=== PATIENT | female | born 1995 | race Caucasian/White ===

== ENCOUNTER 2020-09-14 11:39 | Inpatient (IN) | payer OTHER ==
[~2020-09-14] VITALS: Ht 167.6 cm; Wt 67.4 kg
--- NOTE | 2020-09-14 19:06 | EKG ---
[facility] [address] [place], [place] [address] Signed Sinus tachycardia Nonspecific ST abnormality Abnormal ECG No previous ECGs available Confirmed by MARIANNA MEHTA MD ([id number]) on 09/14/2020 7:06:13 PM Electronically Signed By: MARIANNA MEHTA MD 09/14/20 1906 PATIENT NAME: COLT BECKWITH MONICA Electrocardiogram DATE OF : [birth year] PHYSICIAN: MARIANNA MEHTA MD REPORT #: [id number] REPORT IS CONFIDENTIAL AND NOT TO BE RELEASED WITHOUT AUTHORIZATION
[2020-09-15] MEDS ORDERED: OMEPRAZOLE40 MG PO (07:11)
[2020-09-15] MEDS ORDERED: RIZATRIPTAN10 M1 PO (07:11)
[2020-09-15] MEDS ORDERED: NEXPLANON68 MG SUB-Q (07:16)
[2020-09-17] MEDS ORDERED: MORPHINE SULFAT15 MG PO (15:47)
[2020-09-17] MEDS ORDERED: ONDANSETRON HCL4 MG PO (15:49)
[2020-09-17] MEDS ORDERED: DEXAMETHASONE1 MG PO (15:49)
== END 2020-09-17 16:35 | disposition home or self-care (01) | DRG 916 ==
LOC: ED 11:39 → CCU 11:40 → MS 09-16 14:47
PROVIDERS: ADMIT Internal Medicine; ATTEND Internal Medicine
DX: T80.52XA Anaphylactic reaction due to vaccination, initial encounter (principal); T50.B95A Adverse effect of other viral vaccines, initial encounter; Z20.822 Contact with and (suspected) exposure to COVID-19; M79.10 Myalgia, unspecified site; M25.50 Pain in unspecified joint; L27.0 Generalized skin eruption due to drugs and medicaments taken internally; G43.909 Migraine, unspecified, not intractable, without status migrainosus; Z79.899 Other long term (current) drug therapy
CPT/HCPCS: 36415; 70360; 71045; 80048; 80053; 82310; 82330; 82550; 85025; 85651; 93005; 93010; 96374; 96375; 96376; 99284-25; A9270; C9113; C9803; G0378; J0171; J0780; J1100; J1200; J1885; J2060; J2270; J2405; J2550; J3010; J7030; J7121; J8540; Q0177; U0003

== ENCOUNTER 2020-11-23 09:02 | Inpatient (IN) | payer OTHER ==
[~2020-11-23] VITALS: Ht 167.6 cm; Wt 66.0 kg
[~2020-11-23 09:02] MED LIST: AMITRIPTYLINE H10 MG PO; DEXAMETHASONE1 MG PO; MAXALT10 MG PO; MORPHINE SULFAT15 MG PO; NEXPLANON68 MG SUB-Q; OMEPRAZOLE20 MG PO; OMEPRAZOLE40 MG PO; ONDANSETRON HCL4 MG PO; VALACYCLOVIR1000 MG PO
[2020-11-23] MEDS ORDERED: RIZATRIPTAN10 M1 PO (13:20)
--- NOTE | 2020-11-23 15:40 | NUR ---
Spoke with pts so as she is intubated. He states they cont. to live in [place]. 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 No needs and no financial issues. Plan on dc to home when cleared medically for dc.
--- NOTE | 2020-11-23 18:01 | NUR ---
LATE ENTRY NOTE FROM [id number] 1300: PATIENT ARRIVES TO CCU FROM ENDO ROOM S/P ANAPHLYAXIS AFTER RECEIVING LIDOCAINE FOR EGD. PATIENT WAS ADMITTED SEP 14, 2020 FOR ANAPHYLAXIS AFTER RECEIVING COVID-19 VACCINE. PATIENT HAS A 7 MM ETT, SECURED AT 23 AT THE LIP AFTER ADVANCING AND TAKING A REPEAT CHEST XRAY. PT WAS RECEIVING IV PROPOFOL UPON ARRIVAL. PT VERY STRONG AND ABLE TO SIT UPRIGHT IN BED WHEN COUGHING. 1400: PRN DOSES OF FENTANYL GIVEN FOR PAIN, COUGHING, AND NOT TOLERATING VENTILATOR. PT'S VENT SETTINGS ARE VT 500, VC/AC 16, PEEP 5, FI02 40%. ATTEMPTS FOR NEW IV BEING SOUGHT AFTER SINCE PATIENT ONLY HAD THE ONE IV SITE IN RIGHT HAND UP ON ADMISSION. 1546: PATIENT GIVEN IM 0.5 MG EPINEPHRINE INTO RIGHT VENTROGLUTEAL PER DR. YOON ORDER. PATIENT WAS RESTING FAIRLY CALMLY ON VENTILATOR PRIOR TO THIS, WIHT A HR IN THE 80-90s MOSTLY. AFTER EPI WAS GIVEN, HR UP TO 140-160s, PATIENT WIDE AWAKE ON PROPOFOL, PT SIGNALING AT HER THROAT AND SHOWING A SQUEEZING MESSAGE WITH HER HANDS. WHEN ASKED IF SHE WAS HAVING TROUBLE BREATHING, PATIENT VERY OBVIOUSLY NODS HEAD YES WITH EYES WIDE OPEN. PT BECOMING TEARFUL. RASH COMES AND GOES ON PATIENT'S NECK AND FACE, AND DOWN ONTO UPPER CHEST AREA. LUNGS ARE FAIRLY CLEAR OVERALL. LOTS OF ORAL SECRETIONS BEING SUCTIONED FOR PATIENT. 1630: AFTER MANY ATTEMPTS TO CALM PATIENT DOWN, REITERATE THAT SHE IS IN FACT BREATHING OKAY, HER OXYGEN IS ADEQUATE, BUT HER BODY IS SIMPLY PROCESSING THE EPINEPHRINE SHE WAS GIVEN, PATIENT WAS ABLE TO CALM DOWN. PROPOFOL AND FENTANYL TITRATED UP TO HELP PATIENT. PATIENT GIVEN ADDITIONAL FENTANYL DOSE TO HELP CALM HER WHICH DID HELP. ANOTHER IV WAS FINALLY ESTABLISHED AFTER 3 ATTEMPTS IN LEFT AC. PATIENT SITTING STRAIGHT UP IN BED, BELCHING, DROOLING, AND VERY TEARFUL. PT'S S/O RANDY REMAINS IN ROOM AND VERY HELPFUL TO PATIENT. 1700: PATIENT WRITING CLEAR, LEGIBLE NOTES TO NURSING STAFF AND TO HER S/O. PATIENT ASKING THE EVENTS OF THE DAY AND THIS WAS DISCUSSED. PT STILL HAVING 8-9/10 PAIN IN HER THROAT AND FEELS THAT "SHE CAN BREATH OUT OKAY, BUT NOT IN OKAY." PATIENT GIVEN PRN PHENERGAN FOR NAUSEA. 1800: PATIENT IS NOW RESTING, MUCH CALMER ON THE VENT. VENT SETTINGS ARE UNCHANGED. PT'S SIGNIFICANT OTHER IS AT BEDSIDE. PROPOFOL CURRENTLY INFUSING AT 60 MCG/KG/MIN, FENTANYL AT 50 MCG/KG/HR. WILL START VERSED GTT NEEDED.
--- NOTE | 2020-11-23 19:30 | NUR ---
RECEIVED REPORT FROM TRESA. pt IN BED ON VENT. ALERT AND AWAKE. WRITING QUESTIONS. RT IN ROOM DOING ASSESSMENT. 7mm ETT, SECURED AT 23 AT THE LIP. VENT SETTING VT 500, VC/AC 16, PEEP 5, Fi02 40%. IV PROPOFOL AT 50 mcg/kg/min. FENTANYL AT 50 mcg/HR. LR AT 100 ML/HR. IV PATENT. BAUTISTA DRAINING CLOUDY, YELLOW. pt's SIGNIFICANT OTHER AT THE BEDSIDE.
--- NOTE | 2020-11-23 20:30 | NUR ---
IN TO DO ASSESSMENT. pt REPORTING CHEST HEAVINESS AND IRRITATION IN THE BACK OF HER THROAT. OFFERED HER PAIN MANAGEMENT OPTIONS. pt REPORTED BEING ITCHY WITH DILAUDID. FENTANYL PUSH GIVEN (SEE MAR). NEW BOTTLE OF PROPOFOL HUNG. ADRIANNA VALDEZ VERIFIED PUMP SETTINGS. ASSESSMENT DONE. LUNG SOUNDS CLEAR. NO CHANGES IN ETT PLACEMENT. pt DOES OWN ORAL CARE. WRITING NOTES AND USING SIGN LANGUAGE TO COMMUNICATE. REPOSITIONING SELF. SCDS IN PLACE. SIGNIFICANT OTHER REMAINS AT BEDSIDE.
--- NOTE | 2020-11-23 20:45 | NUR ---
SPOKE WITH DR YOON ABOUT pt CONDITION. NEW ORDERS ENTERED
--- NOTE | 2020-11-23 20:51 | NUR ---
pt RESTING WITH EYES CLOSED, WOKE TO VOICE. DENIES NAUSEA AT THIS TIME. SIGNIFICANT OTHER AT BEDSIDE. RASS SCORE -2.
--- NOTE | 2020-11-23 22:04 | NUR ---
IN TO GIVE SCHEDULED MEDICATIONS. pt RESTING ON VENT, EYES CLOSED. NO CHANGES IN ETT. IV'S PATENT. CPOT 0. DWAINE AT BEDSIDE.
--- NOTE | 2020-11-23 23:11 | NUR ---
ROUNDED ON pt. NEW BAG OF IV FLUIDS HUNG. pt RESTING IN BED WITH EYES CLOSED, NO CHANGE ON ETT. RESTRAINTS ASSESSED. DWAINE AT BEDSIDE.
--- NOTE | 2020-11-24 00:30 | NUR ---
IN TO DO ASSESSMENT. RESTRAINTS RELEASE, ROM. 2PA TO REPOSITION. pt TOLERATED WELL. ASKING QUESITONS THROUGH SIGN LANGUAGE AND WRITING. NO CHANGES IN PHYSICAL ASSESSMENT. ETT REMAINS IN PLACE. ORAL CARE DONE. pt REPORTING THE SAME HEAVINESS IN HER CHEST PROVIDED PRN PAIN MEDICATION. RASS 0. CPOT 3 PRIOR TO PAIN MEDICATION. WILL REASSESS PAIN IN 10 MINUTES. pt AGREEABLE TO PLAN. DWAINE AT BEDSIDE.
--- NOTE | 2020-11-24 00:57 | NUR ---
REASSESSED pt. PAIN OKAY AT THIS TIME. pt REPORTED THAT THERE WAS SOMETHING TO SUCTION OUT OF HER THROAT. RT IN TO ASSIST. SUCTIONING DONE. pt TOLERATED WELL. NO FURTHER REQUESTS AT THIS TIME. DWAINE REMAINS AT BEDSIDE.
--- NOTE | 2020-11-24 01:49 | NUR ---
pt REPORTING AN INCREASE IN CHEST HEAVINESS. ATIVAN GIVEN PER REQUEST. NO CHANGE 100mcg OF FENTANYL GIVEN (SEE MAR). pt NOW RESTING WITH EYES CLOSED, RELAXED IN APPEARANCE. DWAINE REMAINS AT BEDSIDE.
--- NOTE | 2020-11-24 02:05 | NUR ---
pt CONTINUES TO REST CALMLY WITH EYES CLOSED. FENTANYL GTT TITRATED TO 75mcg/HR TO CONTINUE PAIN MANAGEMENT. CPOT 0 AT THIS TIME.
--- NOTE | 2020-11-24 02:53 | NUR ---
ROUNDED ON pt. RESTING IN BED WITH EYES CLOSED, RELAXED. GTT'S REMAIN UNCHANGED. ETT PLACEMENT REMAINS UNCHANGED.
--- NOTE | 2020-11-24 04:16 | NUR ---
ASSESSMENT DONE. RT IN ROOM. ETT MOVED TO CENTER. NO CHANGES IN ASSESSMENT. RESTRAINTS RELEASED, ROM, REAPPLIED. SLIGHT EDEMA IN ARMS NOTED. ELEVATED ON PILLOWS.
--- NOTE | 2020-11-24 05:27 | NUR ---
LAB INTO DRAW. pt TOLERATED WELL ABLE TO MAKE EYE CONTACT FOR A FEW SECONDS. SIGNED "WHAT TIME IS IT?" ABLE TO RELAX AFTER LAB DRAW WAS COMPLETE.
--- NOTE | 2020-11-24 05:49 | NUR ---
MEDICATIONS GIVEN (SEE MAR). pt RESTING CALMLY ON VENT WITH EYES CLOSED.
--- NOTE | 2020-11-24 06:32 | NUR ---
ASSISTED RT WITH ORAL CARE. pt TOLERATED WELL. RASS -1. RANGE OF MOTION DONE. pt REPOSITIONED SELF WITH MINIMAL ASSISTANCE. RESTRAINTS REAPPLIED. SIGNIFICANT OTHER, DWAINE, AT BEDSIDE. NO CHANGES IN ETT OR GTT
--- NOTE | 2020-11-24 07:02 | NUR ---
ROUNDED ON pt. RESTING CALMLY ON VENT. RASS -2
--- NOTE | 2020-11-24 07:34 | NUR ---
RT IN ROOM. PATIENT'S PROPOFOL TURNED DOWN TO 25 MCG/KG/MIN AND FENTANYL TURNED DOWN TO 25 MCG/HR. PATIENT WRITING NOTES TO THIS RN AND ASKING IF WE CAN HELP HER BRUSH HER HAIR. PATIENT AWAKE ENOUGH TO COMMUNICATE WITH SIGN LANGUAGE. DISCUSSED PLAN OF CARE WITH PATIENT. PATIENT STILL ABLE TO COMMUNICATE THAT HER THROAT FEELS TIGHT. PT'S S/O REMAINS IN ROOM. CONTINUE TO MONITOR.
--- NOTE | 2020-11-24 07:56 | NUR ---
KAT FROM RT TO DO A SPONTANEOUS BREATHING TRIAL AT THIS TIME. PT STATES THAT IT IS HARD TO BREATHE. PT ABLE TO BREATHE OVER VENT. O2 100%. PROPOFOL TURNED DOWN TO STANDBY. PTS RESP DROPPED TO 8/MIN. PT STILL DROWSY. KAT FROM RT TO PUT PT BACK ON COVENTIAL SETTINGS. FIO2- 30, VT-500, TI- 0.94, RR-16, PEEP- 5.0.
--- NOTE | 2020-11-24 08:55 | NUR ---
v/s and I&Os done. pt. hair done, face washed. no other needs at this time. call light with in reach
--- NOTE | 2020-11-24 09:33 | NUR ---
RT IN ROOM, GLORIA SANTOS IN ROOM, IN ROOM, KENYA RN IN ROOM, NIDA RN AND AZAEL IN ROOM. PLAN FOR EXTUBATION
--- NOTE | 2020-11-24 09:35 | NUR ---
PT EXTUBATED 0935 PT SHAKES HEAD TO DOESN'T FEEL LIKE AIR IS MOVING WELL. PER STATES THAT PTS LUNGS SOUND TIGHT THROUGHOUT. GLORIA SANTOS TO GIVE BREATHS THROUGH BVM- 12L BLEED IN. PT TAKING BREATHS IN. RR- 16, O2 SAT- 100% GLORIA SANTOS TO SUCTION OROPHARYNX KAT RT TO GIVE RECEMIC EPI. SUCTION APPLIED AGAIN BY GLORIA SANTOS 0942- HR- 161, RR- 25, BVM STILL IN USE- 12L... PT ABLE TO TAKE DEEP BREATHS. SPO2 100% PROPOFOL IN STANDBY- FENTANYL STILL RUNNING AT 25MCG/HR BREATHS STILL BEING DELILVERD BY GLORIA SANTOS 0947- BIPAP TO BE PLACED BY KAT RT- RECEMIC EPI TO BE GIVEN TRHOUGH BIPAP- PT ABLE TO COMMUNICATE THROUGH BODY LANGAUGE AND POINTING THAT HER CHEST AND THRAOT STILL FEELS TIGHT BIPAP ON 50% FIO2- RR- 34, SPO2 100%, HR- 157. PT DECLINES THE NEED FOR MORE FENTANYL- STILL SET AT 25MCG/HR, LR 100ML/HR RED SPLOTCHY RASH NOTED ON PTS CHEST. RECEMIC EPI GOING IN NOW- AIRWAY STARTING TO SOUND BETTER WITH AIR MOVEMENT- PT STATES THAT HER CHEST STILL FEELS TIGHT 0957- RR- 29, SPO2- 100%, FIO2- 50%, HR-123. RESTRAINTS REMOVED FOR COMFORT 0958 1000- GLORIA RN STATED TO HAVE FENTANYL DRIP STOPPED- DRIP ON STANDBY 1000- BP- 140/94 (107), HR- 120, RR- 29, SPO2-100%, FIO2 50% 1002- PT INDICATING THAT CHEST IS STILL TIGHT 1006- RR-20, HR-111, SPO2-100%, FIO2-50% 1008- PT REQUESTING TO TAKE OFF BIPAP VOCALLY 1008- KAT RT TO TAKE OFF BIPAP- PT MOVING AIR WELL THROUGH AIRWAY PER , RR-33, HR-147, SPO2-100% ROOM AIR... MASK WITH 10L COOL MIST BLEED IN PLACED ON PT (1010 TIME). 1010- RR-49 1011- BIPAP PLACED BACK ON DUE TO TACHYCPNEA- PT COUGHED- RR-47. 1014- RR-36, HR-120, SPO2- 100, FIO2- 50%. 1017- PT COUGHING- AUDIBLY MOVING AIR WELL.
--- NOTE | 2020-11-24 10:22 | NUR ---
PT RECEIVED NEB TREATMENT THROUGH BIPAP- SHORTLY AFTER IT STARTED PT LOOKED AT THIS RN WITH PANIC IN HER EYES... PT THEN COUGHED... PT INDICATED FOR SUCTION... KAT FROM RT AT BEDSIDE WAS ABLE TO SUCTION PT. PT ABLE TO RELAX AND BREATHE WELL AGAIN. COUGHT WAS PRODCTIVE. PT DECLINGING THE NEED FOR ATIVAN AT THIS TIME, PT WROTE ON PAPER STATING "WE DON'T KNOW WHAT I AM ALLERGIC TO" PT STATES THAT SHE DOESN'T FEEL ANXIOUS AT THIS TIME AND WOULD RATHER NOT TAKE ANYTHING MORE
--- NOTE | 2020-11-24 11:41 | NUR ---
PATIENT HAD BEEN WEARING BIPAP WELL, MOVING GREAT TIDAL VOLUMES OF AIR, STILL FEELING TIGHTNESS IN HER THROAT, BUT WAS MANAGING OKAY. PT HAD BEEN ON BIPAP SINCE AROUND 1015. RANDY, SIGNIFICANT OTHER REMAINED IN ROOM THIS WHOLE TIME. PATIENT HAD RECEIVED A DOSE OF RACEMIC EPI AFTER EXTUBATION THROUGH BIPAP, AND HAD THEN RECEIVED ANOTHER DOSE OF ALBUTEROL. AROUND 1100, PATIENT C/O WORSENING TIGHTNESS IN HER THROAT AND SIGNALED TO HER S/O THAT IT WAS WORSENING AND SHE COULDN'T BREATH. DR. YOON IN UNIT AND TO HER ROOM IMMEDIATELY. CODE BLUE CALLED - SEE PAPER DOCUMENTATION. PATIENT SUCCESSFULLY INTUBATED WITH A 7 MM ETT AT 1111, SECURED AT 23 AT THE TEETH, VT 500, VC/AC 16, PEEP 5, FI02 30%. PATIENT NOW ON PROPOFOL GTT AT 100 MCG/KG/MIN AT THIS TIME. RESTRAINTS ARE IN PLACE. DR. YOON SEEKING POTENTIAL TRANSFER TO ANOTHER HOSPITAL. WILL CONTINUE TO MONITOR.
--- NOTE | 2020-11-24 12:00 | NUR ---
this rn in pts room to do pts assessment, i&o and vitals. pt sedated and withll flutter her eyes when name is called and is touched. vent in place.
--- NOTE | 2020-11-24 12:08 | NUR ---
1115: PT HAD CONTINUED AIRWAY SWELLING WITH INCREASED SHORTNESS OF BREATH, CALLED BY RN FOR EPI TREATMENT ,PT PROGRESSED AND CODE WAS CALLED FOR RAPID RESPONCE(CODE BLUE), PT WAS STARTED ON EPI BREATHING TREATMENT THROUGH THE BIPAP AND QUICKLY MOVED TO ASSISTED BREATHING WITH A BAG/MASK SHE WAS STILL MOVING AIR WITH RESTRICTED UPPER AIRWAY FLOW, SPO2 WAS 100 , HR 144, PT AT THIS TIME WAS GIVEN IM EPI . 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 7.0 EET 23 @ TEETH , SECURE WITH BITEBLOCK IN PLACED , PT PLACED ON VENTILATOR WITH NO ISSUES. oRALCARE GIVEN , EET TUBE SUCTIONED ONCE WITH NO RETURN. WILL CONTINUE TO CLOSELY MONITOR THE PATIENT.
--- NOTE | 2020-11-24 12:37 | NUR ---
Change in plan for dc, pt maybe transferred out.
--- NOTE | 2020-11-24 13:39 | NUR ---
PATIENT CONTINUES TO REST ON THE VENT, WITH THE SAME SETTINGS. HR HAS BEEN TRENDING UPWARDS, CURRENTLY AT 112, SINUS TACH. PROPOFOL REMAINS INFUSING AT 75 MCG/KG/MIN. IVF CONTINUE AT 100 ML/HR. BAUTISTA DRAINING DILUTE YELLOW URINE. CONTINUE TO MONITOR.
--- NOTE | 2020-11-24 13:44 | NUR ---
PIPER CASTANO CALLED ON PT, RE-INTEBATED, WILL STAND BY NEEDED
--- NOTE | 2020-11-24 14:00 | NUR ---
this rn in pts room to give meds. this rn to give solumedrol and benadryl. pt still on ventilator and sedated between -4 and -5 on the rass. will flicker eyes when name is vacalized and touched. oral care performed.
--- NOTE | 2020-11-24 14:23 | EKG ---
[facility] [address] [place] [address] Signed Normal sinus rhythm Normal ECG When compared with ECG of 14-SEP-2020 11:42, Vent. rate has decreased BY [address] no longer depressed in Inferior leads Nonspecific T wave abnormality now evident in Inferior leads T wave amplitude has decreased in Anterior leads Nonspecific T wave abnormality no longer evident in Lateral leads Confirmed by BJ YOON DO ([id number]) on 11/24/2020 2:22:52 PM Electronically Signed By: BJ YOON DO 11/24/20 1423 PATIENT NAME: COLT BECKWITH Electrocardiogram DATE OF : [birth year] PHYSICIAN: BJ YOON DO REPORT #: [id number] REPORT IS CONFIDENTIAL AND NOT TO BE RELEASED WITHOUT AUTHORIZATION
--- NOTE | 2020-11-24 14:37 | NUR ---
PT TO BE TRANSFERRED TO [facility]. Job ISIDRO IN . GAVE COMFORT AND ENOURAGEMENT NO ISSUES OR NEEDS AT THIS TIME. HE WILL GO OVER IN OWN VEHICLE. WILL FOLLOW NEEDED
--- NOTE | 2020-11-24 14:48 | NUR ---
[facility] HERE TO TRANSFER PATIENT TO [facility]. PATIENT REMAINS ON 65 MCG/KG/MIN OF PROPOFOL. HR IN THE 90s.
--- NOTE | 2020-11-24 14:50 | NUR ---
[facility] in house. report to be given at bedside.
--- NOTE | 2020-11-24 15:25 | NUR ---
[facility] taking off with pt at this time. pts boyfreiend to meet pt up at [facility].
--- NOTE | 2020-11-24 15:39 | NUR ---
REPORT GIVEN TO COURTNEY VALENZUELA AT [facility] ICU. PATIENT LEFT WITH [facility] AT 1515 AND FLEW AWAY AT 1526.
== END 2020-11-24 15:15 | disposition short-term general hospital (02) | DRG 922 ==
LOC: OPS 09:02 → DS 09:06 → OPS 10:00 → DS 10:30 → CCU 11:47 → OPS 11:47 → CCU 11-24 10:37
PROVIDERS: ADMIT Student in an Organized Health Care Education/Training Program; ATTEND Student in an Organized Health Care Education/Training Program
PROC: 0BH17EZ Insertion of Endotracheal Airway into Trachea, Via Natural or Artificial Opening (ICD-10-PCS; principal; 2020-11-23)
PROC: 5A1935Z Respiratory Ventilation, Less than 24 Consecutive Hours (ICD-10-PCS; 2020-11-23)
PROC: 0BH17EZ Insertion of Endotracheal Airway into Trachea, Via Natural or Artificial Opening (ICD-10-PCS; 2020-11-24)
PROC: 5A09357 Assistance with Respiratory Ventilation, Less than 24 Consecutive Hours, Continuous Positive Airway Pressure (ICD-10-PCS; 2020-11-24)
DX: T88.2XXA Shock due to anesthesia, initial encounter (principal); J96.01 Acute respiratory failure with hypoxia; G43.909 Migraine, unspecified, not intractable, without status migrainosus; T41.3X5A Adverse effect of local anesthetics, initial encounter; Y92.239 Unspecified place in hospital as the place of occurrence of the external cause; Z79.899 Other long term (current) drug therapy; Z88.7 Allergy status to serum and vaccine; Z78.1 Physical restraint status
CPT/HCPCS: 31500; 31720; 36415; 71045; 80048; 80053; 83735; 84100; 84703; 85025; 93005; 93010; 94002; 94003; 94150; 94640; 94660; C9113; J0171; J0330; J1100; J1200; J1650; J2060; J2250; J2405; J2550; J2704; J2930; J3010; J7030; J7121

== ENCOUNTER 2021-02-08 18:43 | Emergency (ER) | payer OTHER ==
[~2021-02-08] VITALS: Ht 167.6 cm; Wt 65.8 kg
[~2021-02-08 18:43] MED LIST changes: +RIZATRIPTAN10 M1 PO
[2021-02-08] MEDS ORDERED: FAMOTIDINE20 MG PO (20:19)
[2021-02-08] MEDS ORDERED: EPIN0.3P IM (20:19)
[2021-02-08] MEDS ORDERED: MONTELUKAST SOD10 MG PO (20:19)
--- NOTE | 2021-02-09 16:36 | EKG ---
[facility] [address] [place], [place] [address] Signed Sinus tachycardia Otherwise normal ECG When compared with ECG of 23-NOV-2020 16:55, Nonspecific T wave abnormality, improved in Inferior leads Confirmed by MARIANNA MEHTA MD ([id number]) on 02/09/2021 4:36:19 PM Electronically Signed By: MARIANNA MEHTA MD 02/09/21 1636 PATIENT NAME: COLT BECKWITH MONICA Electrocardiogram DATE OF : [birth year] PHYSICIAN: MARIANNA MEHTA MD REPORT #: [id number] REPORT IS CONFIDENTIAL AND NOT TO BE RELEASED WITHOUT AUTHORIZATION
== END 2021-02-08 21:21 | disposition short-term general hospital (02) ==
LOC: ED 18:43
DX: T78.2XXA Anaphylactic shock, unspecified, initial encounter (principal); Z88.7 Allergy status to serum and vaccine; Z88.8 Allergy status to other drugs, medicaments and biological substances; Z79.899 Other long term (current) drug therapy; Z20.822 Contact with and (suspected) exposure to COVID-19
CPT/HCPCS: 31500; 36600; 51702; 71045; 80053; 82803; 83520; 83605; 83735; 84484; 85025; 93005; 93010; 94002; 99285-25; C9803; J0171; J0330; J1200; J2250; J2704; J3010; J3475; J7030; U0003

== ENCOUNTER 2021-05-19 19:45 | Emergency (ER) | payer OTHER ==
[~2021-05-19] VITALS: Ht 167.6 cm; Wt 65.8 kg
[~2021-05-19 19:45] MED LIST changes: +EPIN0.3P IM; +FAMOTIDINE20 MG PO; +MONTELUKAST SOD10 MG PO
--- OUTSIDE RECORDS SUMMARY | 2021-05-19 19:48 | XMS ---
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 E.Tavares VISIT COUNT (12 MO.) 1 Rosenda Barba TOTAL 4 NOTE: Visits indicate total known visits. ED/UCC VISIT TRACKING (12 MO.) 05/19/2021 19:45 KOBI Alvarez TYPE: Emergency COMPLAINT: - DIFFICULTY BREATHING 03/18/2021 11:29 Rosenda MARQUEZ TYPE: Emergency COMPLAINT: - Shortness of Breath 02/08/2021 18:44 KOBI Alvarez TYPE: Emergency COMPLAINT: - ALLERGIC REACTION DIAGNOSES: - Anaphylactic shock, unspecified, initial encounter - Allergy status to other drugs, medicaments and biological substances - Allergy status to serum and vaccine - Other lobsterman (current) drug therapy 09/14/2020 11:39 KOBI Alvarez TYPE: Emergency COMPLAINT: - ALLERGIC REACTION INPATIENT VISIT TRACKING (12 MO.) 03/18/2021 11:29 Rosenda [place] TYPE: Medical Surgical COMPLAINT: - Shortness of Breath DIAGNOSES: 0. Acute respiratory distress 1. Other diseases of vocal cords 2. Acute respiratory failure with hypoxia 3. Anxiety disorder, unspecified 4. Elevated white blood cell count, unspecified 5. Adverse effect of glucocorticoids and synthetic analogues, initial encounter 6. Unspecified place in hospital as the place of occurrence of the external cause 7. Migraine, unspecified, not intractable, without status migrainosus 8. Allergy status to serum and vaccine 9. Allergy status to other drugs, medicaments and biological substances 02/08/2021 23:01 Paula Boseland [facility] TYPE: Critical Care DIAGNOSES: - Anaphylactic shock, unspecified, initial encounter - Other diseases of vocal cords - Other urticaria - Acute respiratory failure with hypoxia - Angioneurotic edema, subsequent encounter - Acidosis 11/24/2020 15:57 Rosenda [place] TYPE: Medical Surgical COMPLAINT: - ACUTE (ANAPHYLACTIC RXN TO LIDOCAINE) RESP FAILURE; HX PEPTIC ULCERS DIAGNOSES: 0. Acute respiratory failure with hypoxia 1. Shock due to anesthesia, initial encounter 2. Acute respiratory failure with hypoxia 3. Hematemesis 4. Adverse effect of local anesthetics, initial encounter 5. Acute bronchospasm 6. Edema of larynx 7. Elevated white blood cell count, unspecified 8. Adverse effect of glucocorticoids and synthetic analogues, initial encounter 9. Gastritis, unspecified, without bleeding 10. Esophagitis, unspecified without bleeding 11. Migraine, unspecified, not intractable, without status migrainosus 12. Unspecified place in hospital as the place of occurrence of the external cause 13. Allergy status to serum and vaccine 11/24/2020 10:37 KOBI [place] TYPE: Critical Care COMPLAINT: - ALLERGIC REACTION DIAGNOSES: - Allergy status to serum and vaccine - Acute respiratory failure with hypoxia - Shock due to anesthesia, initial encounter - Anaphylactic reaction due to adverse effect of correct drug or medicament properly administered, initial encounter - Physical restraint status - Peptic ulcer, site unspecified, unspecified as acute or chronic, without hemorrhage or perforation - Adverse effect of local anesthetics, initial encounter - Unspecified place in hospital as the place of occurrence of the external cause - Acute respiratory failure with hypoxia - Adverse effect of local anesthetics, initial encounter - Other senior living (current) drug therapy - Epigastric pain - Migraine, unspecified, not intractable, without status migrainosus - Unspecified place in hospital as the place of occurrence of the external cause - Shock due to anesthesia, initial encounter - Migraine, unspecified, not intractable, without status migrainosus 09/16/2020 12:03 KOBI [place] TYPE: Medical Surgical COMPLAINT: - ALLERGIC REACTION TO COVID-19 VACCINE DIAGNOSES: - Migraine, unspecified, not intractable, without status migrainosus - Other allergy, initial encounter - Other lobsterman (current) drug therapy - Adverse effect of other viral vaccines, initial encounter - Myalgia, unspecified site - Anaphylactic reaction due to vaccination, initial encounter - Generalized skin eruption due to drugs and medicaments taken internally - Pain in unspecified joint [email or web address]
[2021-05-19] MEDS ORDERED: LORAZEPAM1 MG PO (22:21)
--- NOTE | 2021-05-20 14:55 | EKG ---
[facility] [address] [place], [place] [address] Signed Sinus tachycardia Incomplete right bundle branch block Borderline ECG When compared with ECG of 08-FEB-2021 20:27, No significant change was found Confirmed by BJ YOON DO ([id number]) on 05/20/2021 2:54:48 PM Electronically Signed By: BJ YOON DO 05/20/21 1455 PATIENT NAME: COLT BECKWITH MONICA Electrocardiogram DATE OF : [birth year] PHYSICIAN: BJ YOON DO REPORT #: [id number] REPORT IS CONFIDENTIAL AND NOT TO BE RELEASED WITHOUT AUTHORIZATION
== END 2021-05-20 06:48 | disposition home or self-care (01) ==
LOC: ED 19:45
DX: J38.3 Other diseases of vocal cords (principal); Z88.7 Allergy status to serum and vaccine; Z88.6 Allergy status to analgesic agent; Z79.899 Other long term (current) drug therapy
CPT/HCPCS: 71045; 80053; 84484; 85007; 85025; 93005; 93010; 94660; 96374; 96375; 96376; 99285-25; J1170; J2060; J2550

== ENCOUNTER 2021-05-20 20:48 | Emergency (ER) | payer OTHER ==
[~2021-05-20] VITALS: Ht 167.6 cm; Wt 65.8 kg
[~2021-05-20 20:48] MED LIST changes: +LORAZEPAM1 MG PO
--- OUTSIDE RECORDS SUMMARY | 2021-05-20 20:50 | XMS ---
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 E.D. VISIT COUNT (12 MO.) 1 Rosenda Uriarte [address] [place] [address] TOTAL 5 NOTE: Visits indicate total known visits. ED/C VISIT TRACKING (12 MO.) 05/20/2021 20:48 KOBI Alvarez TYPE: Emergency COMPLAINT: - SOB 05/19/2021 19:45 KOBI Alvarez TYPE: Emergency COMPLAINT: - DIFFICULTY BREATHING 03/18/2021 11:29 Rosenda MARQUEZ TYPE: Emergency COMPLAINT: - Shortness of Breath 02/08/2021 18:44 KO[place] TYPE: Emergency COMPLAINT: - ALLERGIC REACTION DIAGNOSES: - Anaphylactic shock, unspecified, initial encounter - Allergy status to other drugs, medicaments and biological substances - Allergy status to serum and vaccine - Other jail (current) drug therapy 09/14/2020 11:39 KOBI Alvarez TYPE: Emergency COMPLAINT: - ALLERGIC REACTION INPATIENT VISIT TRACKING (12 MO.) 03/18/2021 11:29 [facility] COMPLAINT: - Shortness of [...] medicaments and biological substances 02/08/2021 23:01 Paula [facility] [place] TYPE: Critical Care DIAGNOSES: - Anaphylactic shock, unspecified, initial encounter - Other diseases of vocal cords - Other urticaria - Acute respiratory failure with hypoxia - Angioneurotic edema, subsequent encounter - Acidosis 11/24/2020 15:57 Rosenda [facility] TYPE: Medical Surgical COMPLAINT: - ACUTE (ANAPHYLACTIC [...] of local anesthetics, initial encounter - Other jail (current) drug therapy - Epigastric pain - [...] - Other allergy, initial encounter - Other jail (current) drug therapy - Adverse effect of other viral vaccines, initial encounter - Myalgia, unspecified site - Anaphylactic reaction due to vaccination, initial encounter - Generalized skin eruption due to drugs and medicaments taken internally - Pain in unspecified joint [email or web address]
== END 2021-05-21 04:17 | disposition short-term general hospital (02) ==
LOC: ED 20:48
DX: J38.3 Other diseases of vocal cords (principal); Z20.822 Contact with and (suspected) exposure to COVID-19; Z88.7 Allergy status to serum and vaccine; Z88.8 Allergy status to other drugs, medicaments and biological substances; Z91.048 Other nonmedicinal substance allergy status; Z79.899 Other long term (current) drug therapy
CPT/HCPCS: 96374; 96375; 96376; 99285-25; C9803; J1170; J1200; J2060; J2550; U0003

== ENCOUNTER 2021-05-23 15:33 | Inpatient (IN) | payer OTHER ==
[~2021-05-23] VITALS: Ht 167.6 cm; Wt 79.2 kg
--- OUTSIDE RECORDS SUMMARY | 2021-05-23 15:36 | XMS ---
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 - 3 Facilities in 90 Days - PDMP - [facility] - 2 Visits in 30 Days - 6 ED Visits in 6 Months CARE PROVIDERS VERONICA QUINTANA [facility] Current PHONE: Unknown RUDI AUGUSTINE [facility] 05/23/2021-Current PHONE: [phone] [facility] has no Care Guidelines for this patient. E.D. VISIT COUNT (12 MO.) 1 [facility] [place] 1 [facility] [address] [place] [address] TOTAL 7 NOTE: Visits indicate total known visits. ED/UCC VISIT TRACKING (12 MO.) 05/23/2021 15:34 KOBI Alvarez TYPE: Emergency COMPLAINT: - ABDOMINAL PAIN, CHEST PAIN, VOMITING BLOOD, SOB 05/21/2021 06:27 [facility] TYPE: Emergency DIAGNOSES: 17544. 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 THROAT ISSUE 67140. Other diseases of vocal cords 94081. Other pulmonary embolism without acute cor pulmonale 05/20/2021 20:48 KOBI Alvarez TYPE: Emergency COMPLAINT: - SOB 05/19/2021 19:45 [place] [place] TYPE: Emergency COMPLAINT: - DIFFICULTY BREATHING DIAGNOSES: - Other intermediate teacher (current) drug therapy - Acute respiratory distress - Other diseases of vocal cords - Allergy status to analgesic agent - Allergy status to serum and vaccine 03/18/2021 11:29 Rosenda MARQUEZ TYPE: Emergency COMPLAINT: - Shortness of Breath 02/08/2021 18:44 [facility] [place] TYPE: Emergency COMPLAINT: - ALLERGIC REACTION DIAGNOSES: - Anaphylactic shock, unspecified, initial encounter - Allergy status to other drugs, medicaments and biological substances - Allergy status to serum and vaccine - Other intermediate teacher (current) drug therapy 09/14/2020 11:39 KOBI Alvarez TYPE: Emergency COMPLAINT: - ALLERGIC REACTION INPATIENT VISIT TRACKING (12 MO.) 03/18/2021 11:29 Rosenda Rodriguez [place] TYPE: Medical Surgical COMPLAINT: - Shortness of [...] and biological substances 02/08/2021 23:01 [facility] TYPE: Critical Care DIAGNOSES: - Anaphylactic shock, unspecified, initial encounter - Other diseases of vocal cords - Other urticaria - Acute respiratory failure with hypoxia - Angioneurotic edema, subsequent encounter - Acidosis 11[facility]24[facility]2020 15:57 [facility] TYPE: Medical Surgical COMPLAINT: - ACUTE (ANAPHYLACTIC [...] status to serum and vaccine 11/24/2020 10:[address] [facility] [place] TYPE: Critical Care COMPLAINT: - ALLERGIC [...] of local anesthetics, initial encounter - Other fci (current) drug therapy - Epigastric pain - [...] - Other allergy, initial encounter - Other intermediate teacher (current) drug therapy - Adverse effect of other viral vaccines, initial encounter - Myalgia, unspecified site - Anaphylactic reaction due to vaccination, initial encounter - Generalized skin eruption due to drugs and medicaments taken internally - Pain in unspecified joint [email or web address]
--- NOTE | 2021-05-23 22:04 | NUR ---
PT TO ROOM 109 FROM ED WITH FISH BAIT PROCESSING SUPERVISOR AT 2100. ALERT AND ORIENTED X 4. PT REPORTS BEING DIZZY AND UNABLE TO WALK AT THIS TIME. PT ABLE TO SLIDE FROM STRETCHER TO BED, MELE WELL. TELE #[address] VS WNL. SpO2 100% ON RA. RESPIRATIONS EVEN. HR 90'S. PT DENIES SOB. DOES REPORT PAIN/HEAVINESS IN HER CHEST. PRN FOR PAIN ADMINISTERED PER EMAR. SCHEDULED MEDS ADMINISTERED PER EMAR. NO SWALLOWING ISSUES NOTED. ASSESSMENT COMPLETE. LUNGS DIM THROUGHOUT, PT REPORTS PAIN WITH INSPIRATION. SHALLOW BREATHS NOTED. PT ORIENTED TO ROOM AND NURSE CALL LIGHT. DENIES QUESTIONS OR CONCERNS. CALL LIGHT IN REACH.
--- NOTE | 2021-05-23 22:30 | NUR ---
PT CALLED AND REQUESTED WARM BLANKET, PROVIDED. PT DENIES OTHER NEEDS AT THIS TIME.
--- NOTE | 2021-05-23 22:50 | NUR ---
CARPENTER REPAIR TO BEDSIDE TO DRAW TYPE AND SCREEN, SECOND SIGNED. PT RESTING IN BED. DENIES NEEDS AT THIS TIME.
--- NOTE | 2021-05-23 23:23 | NUR ---
PT CALLED FOR COMPLAINT OF INCREASED CHEST PAIN. REQUESTTING PAIN MEDIATION, GIVEN 0.5MG DILAUDID. PT WITH TACHYPNEA AND STRIDOR. o2 SATS 100%, RR 40. MD CALLED AND ASKED TO COME TO ROOM.
--- NOTE | 2021-05-23 23:25 | NUR ---
rAPID RESPONSE TEAM CALLED.
--- NOTE | 2021-05-23 23:28 | NUR ---
20MG KETAMIN GIVEN IV PUSH.
--- NOTE | 2021-05-23 23:29 | NUR ---
2MG ATIVAN GIVEN IV.
--- NOTE | 2021-05-23 23:35 | NUR ---
PT MORE RELAXED, ALERT, ANSWERING QUESTIONS APPROPRIATELY.
--- NOTE | 2021-05-23 23:35 | NUR ---
80MG IV SOLUMEDROL GIVEN.
--- NOTE | 2021-05-24 | NUR ---
2340 pt ARRIVED FROM MED/SURG TO CCU. DR MEHTA ACCOMPANIED pt ALONG WITH PRIMARY RN JOSEPH. pt COMPLAINS OF BLURRY VISION AND A HEADACHE THAT STARTED AROUND NOON, HEADACHE IS NOW A 6/10. pt REPORTS 9/10 EPIGASTRIC AND ABD PAIN WHICH SHE RECEIVED 0.5MG DOSE OF DILAUDID. PRN NAUSEA MEDICATION GIVEN FOR NAUSEA. LAST EPISODE OF EMESIS REPORTED TO BE AROUND 1500 "STRAIGHT BLOOD". PULSES WELL FELT. pt FEELS WARM TO THE TOUCH IN HER UPPER BODY, FEET ARE COOL, CAP REFILL NORMAL. LR @100. IV PATENT. LUNGS ARE DIM, INSPIRATORY WHEEZE AUSCULATED IN BASES WORSE IN RIGHT LUNG. FACE IS PUFFY, LOWER LIP APPEARS SWOLLEN, pt REPORTS IT DOES FEEL SWOLLEN. O2 SAT 98% ON ROOM AIR. pt HAS TROUBLE FINDING WORDS AT TIMES. UPDATED ON PLAN OF CARE. CALL LIGHT WITHIN REACH. pt RESTING IN BED, TEXTING. NASRA VALDEZ UPDATED MOTHER ON pt CHANGE IN CONDITION.
--- NOTE | 2021-05-24 01:00 | NUR ---
ROUNDED ON pt. RESTING IN BED WITH EYES CLOSED, RESPIRATIONS REGULAR AND UNLABORED. O2 SAT MID 90'S. RESPIRATION RATE 11. CALL LIGHT WITHIN REACH.
--- NOTE | 2021-05-24 02:00 | NUR ---
ROUNDED ON pt. RESTING IN BED WITH EYES CLOSED, RESPIRATIONS REGULAR. CALL LIGHT WITHIN REACH.
--- NOTE | 2021-05-24 03:00 | NUR ---
pt MOVING IN BED. REPORTED PAIN IS UNCHANGED. PRN GIVEN (SEE MAR). SECOND IV STARTED. pt ITCHING WITH DILAUDID, BENADRYL GIVEN (SEE MAR). pt UP TO VOID, VERY UNSTEADY REPORTED FEELING DIZZY, LARGE VOID. BACK TO BED. pt REQUESTED ATIVAN SHE FELT SHE MIGHT HAVE AN "VCD ATTACK" GIVEN. CALL LIGHT IN HAND. WARM BLANKET PROVIDED.
--- NOTE | 2021-05-24 05:36 | NUR ---
IN TO DO LAB DRAW. pt AWAKE IN BED. REPORTED THAT PAIN HAS NOT CHANGED. PRN GIVEN (SEE MAR). PROVIDED A FRESH WARM BLANKET. NO FURTHER REQUESTS AT THIS TIME. CALL LIGHT WITHIN REACH. LUNGS REMAIN VERY DIMINISHED WITH INSPIRATORY WHEEZE IN THE BASES AND NEW CRACKLES ON THE LEFT.
--- NOTE | 2021-05-24 07:30 | NUR ---
REPORT RECIEVED. PATIENT IS IN BED WITH HOB ELEVATED. ASSESSMENT DONE. PATIENT IS ABLE TO FOLLOW COMMANDS. C/O BLURRED VISION AND RUIZ, SWELLING NOTED ON RIGHT SIDE OF FACE INCLUDING LIP AND TONGUE. SPEECH IS SLURRED. HAVING DIFFICULTY UNDERSTANDING WHAT PATIENT IS SAYING. RIGHT ARM IS WEAKER THAN THE LEFT. EQUAL STRENGTH IN LEGS. STRIDOR IN UPPER AIRWAY NOTED. OXYMASK TO AIR AT 10 LITER PER PATIENT COMFORT. PATIENT ASKING ABOUT THE POSSIBILITY OF HAVING A STROKE, TOLD PATIENT WE WOULD CONTINUE TO MONITOR S/S OF STROKE. DR. MEHTA IN ROOM WITH PATIENT. ECHO BEING DONE AT BEDSIDE.
--- NOTE | 2021-05-24 07:30 | NUR ---
0610 CALL LIGHT ON. pt REPORTED UNBEARABLE ITCHING. CALLED DR MEHTA, NEW ORDERS RECEIVED FOR SOLU-MEDROL 60MG IV ONCE AND 25MG BENADRYL IV ONCE. ORDERS ENTERED. 0630 AFTER PUSHING MEDICATIONS. pt REPORTED AN ONCOMING EPISODE. 1MG ATIVAN GIVEN IMEDIATELY. pt TACHYPNEA, SIGNED FOR KETAMINE. ADRIANNA VALDEZ IN ROOM TO ASSIST, 20MG KETAMINE GIVEN. HR 130S. 0648 DR MEHTA CALLED AND UPDATED NO NEW ORDERS AT THAT TIME. DR MEHTA ON HER WAY. 07 DR MEHTA ARRIVED TO ROOM. VERBAL ORDERS FOR ANOTHER 1MG OF ATIVAN. 0707 ORDERS FOR 1MG OF MORPHINE, LITTLE CHANGE, 2MG OF MORPHINE GIVEN. INSTRUCTIONAL SUPPORT SPECIALIST IN ROOM. 0713 RT CALLED, RACEPINEPHRINE GIVEN. 07 HR DECREASED, pt RECOVERING TALKING ADRIANNA VALDEZ REMAINED WITH pt.
--- NOTE | 2021-05-24 08:30 | NUR ---
BAUTISTA CATH PLACED W/O DIFFICULTY WITH RETURN OF CLEAR YELLOW URINE. PATIENT TOLERATED WELL. ABLE TO UNDERSTAND PATIENT VERBALLY BETTER AT THIS TIME. C/O RUIZ PAIN 10/10. MORPHINE 2 MG IV TO BE GIVEN.
--- NOTE | 2021-05-24 08:53 | NUR ---
EPI 0.5 MG IM GIVEN PER MD ORDERS. THIE GIVEN TO LEFT DELTOID. HOB ELEVATED.
--- NOTE | 2021-05-24 09:15 | NUR ---
MORPHINE 2 MG IV GIVEN FOR RUIZ. PATIENT REQUESTING ANOTHER DOSE OF EPI.
--- NOTE | 2021-05-24 09:20 | NUR ---
DR. MEHTA UPDATED ON PATIENT STATUS, NO FUTHER ORDER FOR EPI, ORDERED TO REPEAT BENADRYL NOW. BENADRYL 25 MG IV GIVEN. C/O INCREASD BLURRED VISION IN LEFT EYE, STATES SHE IS UNABLE TO SEE OUT OF RIGHT EYE. CONTINUES WITH RUIZ. CT OF HEAD TO BE ORDERED. SPEECH IS MORE EASY TO UNDERSTAND
--- NOTE | 2021-05-24 10:05 | NUR ---
KETAMINE 20 MG IV GIVEN FOR SHORTNESS OF BRETAH PRIOR TO CT OF HEAD.
--- NOTE | 2021-05-24 10:10 | NUR ---
TO CT VIA BED. RN AND CLINICAL TRIAL COORDINATOR WITH PATIENT.
--- NOTE | 2021-05-24 10:30 | NUR ---
WHILE IN CT, PATIENT DEVELOPED RED BLOTCHY RASC ON NECK AND UPPER TORSO. RESP RATE 10, PATIENT IS SEDATED. WILL OPEN EYES FOR SPLIT SECOND WHEN NAME CALLED LOUDLY. NOT FOCUSING AT THIS TIME. BACK TO CCU VIA BED. DR. MEHTA NOTIFIED AND CAME TO ROOM. NO FUTHER ORDERS AT THIS TIME.
--- NOTE | 2021-05-24 10:52 | NUR ---
AWAKE NOW. STATES VISION IS STILL BLURRY BUT BETTER. CONTINUES WITH RUIZ, RATES 8/10. C/O CHEST DISCOMFORT AND ABD DISCOMFORT. DIEUDONNE ROMAN RN HERE TO TALK WITH PATIENT ABOUT LINE PLACEMENT.
--- NOTE | 2021-05-24 11:00 | NUR ---
RASH IS GONE AT THIS TIME.
--- NOTE | 2021-05-24 11:06 | NUR ---
RELAXED AND CALM. HR-109, BP-122/85, SAT 100. STATES VISION IS LESS BLURY. CONTINUES WITH RUIZ.
[2021-05-24] MEDS ORDERED: CITALOPRAM HBR20 MG PO (11:15)
[2021-05-24] MEDS ORDERED: AMITRIPTYLINE H25 MG PO (11:15)
[2021-05-24] MEDS ORDERED: ELIQUIS5 MG PO (11:17)
[2021-05-24] MEDS ORDERED: DIAZEPAM5 MG PO (11:19)
[2021-05-24] MEDS ORDERED: PANTOPRAZOLE SO40 MG PO (11:20)
[2021-05-24] MEDS ORDERED: TRETINOIN20 G2 TOP (11:21)
--- NOTE | 2021-05-24 11:55 | NUR ---
ATIVAN 1 MG IV GIVEN.
--- NOTE | 2021-05-24 13:08 | NUR ---
MED REC COMPLETE
--- NOTE | 2021-05-24 13:48 | NUR ---
PT CALLED TO ASK FOR MORPHINE FOR 6-8\10 ABD, HEAD AND CHEST PAIN.
--- NOTE | 2021-05-24 14:15 | NUR ---
MORPHINE 2 MG IV REPEATED FOR C/O PAIN IN HEAD, CHEST, ABD. PATIENT STATES SHE FEELS LIKE HER TONGUE IS MORE SWOLLEN AND THROAT IS MORE IRRITATED AFTER EATING JELLO. REQUIRES MUCH EMOTIONAL SUPPORT.
--- NOTE | 2021-05-24 15:30 | NUR ---
Update from RN. She requests pt not be awakened as she has just settled. Will follow up when pt more stable for CM assessment.
--- NOTE | 2021-05-24 16:57 | NUR ---
PATIENT USES CALL LIGHT AND STATES HER PAIN IN THE MIDDLE OF HER CHEST IS STARTING UP AGAIN. PT GIVEN 2 MG IV MORPHINE FOR 10/10 PAIN. PT STARTING TO CRY, HR UP TO 130-140s. PT'S SIGNIFICANT OTHER AT BEDSIDE. ATTEMPTING TO HELP CALM PATIENT MUCH POSSIBLE. CONTINUE TO MONITOR.
--- NOTE | 2021-05-24 18:04 | NUR ---
BIPAP APPLIED AT 50% FIO2 AND 12/6. PATIENT INDICATES SHE CAN'T BREATH. HOLDING NECK.
--- NOTE | 2021-05-24 18:48 | NUR ---
REMAINS ON BIPAP. C/O SWELLING OF TONGUE, HOB REMAINS ELEVATED. REQUESTING MORE EPI, AWARE. NO FUTHER ORDERS AT THIS TIME. SEEM EMAR FOR MEDICATIONS GIVEN DURING EPISODE OF PAIN AND SHORNESS OF BREATH LASTING FROM APPROX 1700 TO CURRENT.
--- NOTE | 2021-05-24 19:06 | NUR ---
RATES CURRENT PAIN IN UPPER ABD AND CHEST 10/10. STATES MORPHINE DOESN'T WORK. STATES MORPHINE ONLY HELPS FOR 5 MIN. REQUESTING DILAUDID.
--- NOTE | 2021-05-24 19:31 | NUR ---
REPORT TO NEXT SHIFT. DR. MEHTA HERE TALKING WITH STAFF NURSES ABOUT POC FOR NIGHT.
--- NOTE | 2021-05-24 19:46 | NUR ---
RECEIVED RPOERT WITH CELESTINA RN FROM CÉSAR VALDEZ ABOUT THIS PATIENT. GROUP DISCUSSION FOR PLAN OF CARE INCLUDING DR MEHTA AT SHIFT REPORT. PATIENT IS WILLING TO TRY A MORPHINE DRIP, BUT PATIENT HAS VOICED CONCERNS THAT "MORPHINE DOESN'T LAST LONG ENOUGH" CLEESTINA VALDEZ EXPLAINED TO PATIENT USE OF THE FIRST AID NURSE A WAY OF PROVIDING CONTINUOUS RELIEF IN AN ATTEMPT TO GET HER PAIN TO A TOLERABLE LEVEL. SIGNIFICANT OTHER IN ROOM. PATIENT REMAINS ON BIPAP, /, FIO2 50%, DOES NOT APPEAR IN ANY DISTRESS AT THIS MOMENT. MAINTANCE IV FLUIDS INFUSING THRU MIDLINE PLACED TODAY IN RIGHT ARM. BAUTISTA REMAINS IN PLACE DRAINING CLEAR YELLOW URINE.
--- NOTE | 2021-05-24 20:12 | NUR ---
MORPHINE NAVIGATING OFFICER STARTED AT THIS TIME VERIFIED WITH CELESTINA VALDEZ. LOADING DOSE 5MG, 1MG CONTINUOUS, 4 HOUR 20 MG, 12 MINUTE LOCKOUT. EDUCATED PATIENT ON NAVIGATING OFFICER USE.
--- NOTE | 2021-05-24 20:55 | NUR ---
PATIENT IS REPORTING ITCHING AFTER THE MORPHINE INFORMIX DEVELOPER INITIATED. PATIENT STATES THAT THE ITCHING IS ABOUT "THE SAME THE ITCHING REPORTED WITH DILAUDID. DR MEHTA CALLED AND THIS RN REPORTED PATIENT IS ITCHING, ASKED ABOUT VSTARIL. DR MEHTA WANTS A ONE TIME DOSE OF BENADRYL 25 MG IV PATIENT IS NOT DUE FOR THIS.SEE EMAR. CONTINUE INFORMIX DEVELOPER AT SAME DOSING.
--- NOTE | 2021-05-24 22:11 | NUR ---
PATIENT IS GOING TO TRY TO SLEEP NOW WANTS TO PUT ON THE BIPA AT THIS TIME. PATIENT REPORTING THAT HER PAIN HAS "NOT REALLY CHANGED" PATIENT NOT ITCHING HERSELF AT THIS MOMENT. HAS BIPAP MASK BUT NOT ON AT THIS TIME BUT PATIENT ABLE TO PUT HER MASK ON BY SELF HEN SHE FEELS THE NEEDS. PATIENT OFFEREDNSAL CANNULA FOR O2 IF NEEDED.
--- NOTE | 2021-05-24 22:44 | NUR ---
PATIENT REPORTING THAT HER ITCHING HAS NOT IMPROVED AND IS ASKING FOR SOMETHING "TOPICAL" ALSO REPORTING THE "MORPHINE IS NOT DOING ANYTHING FOR MY PAIN" THIS RN INFORMED DR MEHTA OF PATIENT'S REQUEST AND ABOUT HER PAIN. SHE WILL ORDER HYDROCORTISONE CREAM.
--- NOTE | 2021-05-24 23:02 | NUR ---
PATIENT REMAINS ON ROOM AIR AND IS LYING ON HER RIGHT SIDE, RESPIRATIONS EVEN AND UNLABORED. PATIENTS SATS GO INTO THE HIGH 80'S RR 10-12. PATIENT INFORMED THAT THE MORPHINE PRODUCT TEST SPECIALIST CAN DECREASE HER RESPIRATORY DRIVE AND ASKED PATIENT IF SHE WILL WEAR A NASAL CANNUAL, SHE IS AGRREABLE AND PUTS IT ON HERELF. 2 LITERS. PATIENT STATES "I CAN'T SLEEP WITH THAT MASK ON"
--- NOTE | 2021-05-25 00:26 | NUR ---
PATIENT USES CALL LIGHT TO ASK "WHAT HAPPENED?" THIS RN IN PT ROOM AND SHE IS SITTING UPRIGHT IN BED. SHE APPEARS TO HAVE CLENCHED FISTS, RESPIRATORY RATE IN THE 30'S. PLACED BIPAP BACK ON PT. PATIENT GIVEN 1 MG ATIVAN IV BY CELESTINA VALDEZ. PATIENT APPEARS TO BE TAKING SLOWER SHALLOW BREATHS. RT MICHELLE IN ROOM. PATIENT STARTING TO BECOME MORE RELAXED AFTER THE ATIVAN. DR MEHTA IN ROOM WELL. PATIENT HEAD REPOSITIONED BACK, BIPAP ON 08/15, 30% FIO2.
--- NOTE | 2021-05-25 00:56 | NUR ---
PATIENT APPEARS TO BE RESTING. BIPAP REMAINS ON PT. RR12, SATS 96% HR 71. BIPAP 12/6, 30% FIO2
--- NOTE | 2021-05-25 02:28 | NUR ---
PT APPEARS TO BE SLEEPING, ON HER BACK HOB ELEVATED, USING BIPAP, NO CHANGE IN SETTINGS. O2 SAT 96% RESP 14.
--- NOTE | 2021-05-25 03:00 | NUR ---
PATIENT CONTINUES TO SLEEP, HOB ELEVATED. REMAINS ON BIPAP SETTINGS UNCHANGED. RR 13, SAT 96%.
--- NOTE | 2021-05-25 04:30 | NUR ---
CALL LIGHT ON. pt REQUESTED ATIVAN SHE WOKE UP TO A AN "ON COMING ATTACK" GIVEN. PROVIDED NAUSAEA MEDS AND BENADRYL FOR ITCHING WILL CHECK BACK WITH pt. CALL LIGHT IN HAND.
--- NOTE | 2021-05-25 05:50 | NUR ---
ASSESSMENT DONE. ATIVAN GIVEN, pt REPORTS THAT THE PRIOR ATIVAN HAS HELPED A LITTLE. SCHEDULED MEDICATION GIVNE (SEE MAR). LUNGS REMAIN DIM WITH SLIGHT STRIDOR SOUND FROM UPPER AIR WAY. WHEEZE IN BASES. URINE IS DILUTE. PAIN WAS CONTROLLED WITH DENTURE PACKER TO A 7/10 UNTIL pt WOKE WITH FEELINGS OF AN ON COMING ATTACK. PAIN IS NOW A 8/10. DISCUSSED TREATMENT PLAN. CALL LIGHT WITHIN REACH.
--- NOTE | 2021-05-25 06:40 | NUR ---
PATIENT WAS PLACED ON MORPHINE CERTIFIED FRAUD EXAMINER AND HAS BEEN ON THIS MOST OF SHIFT. HAS HAD IMPROVED PAIN FROM "9" TO "7" PT HAS BEEN ON BIPAP MOST OF THE NIGHT 08/15, FIO2 30%. SHE WAS ON ROOM AIR WHILE AWAKE BUT BEGAN TO HAVE SIMILAR EPISODES OF WHERE SHE GOT TENSED UP AND FELT "IT COMING ON" RECEIVED ADDITIONAL ATIVAN FOR THESE OCCURRENCES. PT HAS BEEN DRINKING WATER AND MAKING GOOD URINE, STILL HAS BAUTISTA.
--- NOTE | 2021-05-25 08:00 | NUR ---
ASSESSMENT DONE, PATIENT IS ANXIOUS R/T TREATMENT. ASKING MANY QUESTIONS. FRUSTRATED REGARDING CURRENT TREATMENT. TALKED WITH PATINET ABOUT THIS. ATIVAN 1 MG IV GIVEN. IVF PATENT, BAUTISTA CATH PATENT. TAKING WATER WELL. DENIES NAUSEA. HOB ELEVATED. DENIES SHORTNESS OF BREATH. ON RA AT THIS TIME. REQUESTING BENADRYL FOR ITCHING. WILL GIVE WHEN TIME TO GIVE. ASKING ABOUT DISCHARGE. TALKED WITH PATIENT ABOUT WANT THE PLAN MIGHT BE IN ORDER FOR DISCHARGE.
--- NOTE | 2021-05-25 08:30 | NUR ---
VITALS CHARTED. BAUTISTA EMPTIED. PATIENT AWAKE IN BED, S/O IN ROOM
--- NOTE | 2021-05-25 10:00 | NUR ---
DR. MEHTA HERE TO SEE PATIENT. PATIENT CONTIUNES TO C/O ITCHING. USING HYDROCORTISONE NEEDED.
--- NOTE | 2021-05-25 11:30 | NUR ---
SURGEON ON-CALL HERE TO SEE PATIENT. PATIENT CONTINUES TO USE MORPHINE EDITOR CONTINUITY AND SCRIPT FOR ABD PAIN AND CHEST PAIN. NO FUTHER CHANGES.
--- NOTE | 2021-05-25 11:40 | NUR ---
PATIENT WITH INCREASED ANXIETY AFTER HAVING TALK WITH SURGEON PATIENT MIGHT NEED TO BE TRANSFERRED TO HIGHER LEVEL OF CARE. PATIENT VERY, VERY ANXIOUS. SEE EMAR FOR MEDICATIONS GIVEN. BIPAP APPLIED.
--- NOTE | 2021-05-25 12:10 | NUR ---
RN ASK FOR HELP IN ROOM PATIENT O2 SATS DOWN TO MID 70'S. O2 INCREASED AND RT AND DR. MEHTA IN ROOM. PRESSURES INCREASED TO 16 O2 AT 10 L BLED IN TO BIPAP. PATIENT HAS RECIEVED BENADRYL, ATIVAN, KETAMINE, EPI. PATIENT REMAINS VERY ANXIOUS.
--- NOTE | 2021-05-25 13:15 | NUR ---
CALM NOW. REMAINS ON BIPAP. HAS HAD NO ACTIVE BLEEDING NOTED SINCE ADMISSION.
--- NOTE | 2021-05-25 13:58 | NUR ---
CALLED TO PATIENT ROOM , RN NOTED THAT PATIENT HAD INCREASED WOB , AND SPO2 DROPPED TO 67%, PT PLACED ON BIPAP 16/6 , WITH A BLEED IN OF 10 LPM. PT HAD POSITION UPPER AIRWAY NOISE CONSISTANT WITH STRIDOR EPI AND STERIOD WAS GIVEN BY COURTNEY LINDSEY AT BEDSIDE . PT UPPER AIRWAY NOISE INTTERMITANT AND RN IDENTIFIED THAT SHE HAD A SWOLLEN TONGUE, THIS VERY WELL COULD BE CAUSING UPPER AIRWAY OBSTRUCTION THAT IS AFFECTED DURING DIFFERENT POSITIONAL CHANGES.PATIENT SEEMS TO BE MORE COMFORTABLE AFTER INTERVENTIONS. NO UPPER AIRWAY NOISE CAN BE HEARD SHE IS PULLING GOOD VOLUMES, AND VITALS ARE STABLE . AEROGEN IN-LINE NEB IS AT BEDSIDE .
--- NOTE | 2021-05-25 15:13 | NUR ---
SLEEPING. OFF BIPAP. ON ROOM AIR. NO DISTRESS NOTED AT THIS TIME. IVF/BAUTISTA CATH PATENT.
--- NOTE | 2021-05-25 16:45 | NUR ---
Notified by RN and Dr. Serrato they cont. to work on transfer of this pt. She has an accepting DrMable and is awaiting a bed at [facility].
--- NOTE | 2021-05-25 18:00 | NUR ---
C/O ITCHING, PAIN, RUIZ. KETAMINE 20 MG IV GIVEN, BENADRYL 25 MG IV GIVEN.
--- NOTE | 2021-05-25 18:15 | NUR ---
PATIENT STATES SINCE SHE FEELS MUCH BETTER AFTER BENADRYL AND KETAMINE GIVEN. MUCH LESS ITCHING AND PAIN.
--- NOTE | 2021-05-25 18:31 | NUR ---
TURNED TO LEFT SIDE. DENIES NEED FOR PAIN MEDICATION. IVF REMAIN PATENT. SP CATH PATENT. NO FUTHER CHANGES.
--- NOTE | 2021-05-25 19:45 | NUR ---
REPORT RECEIVED FROM CÉSAR VALDEZ. DR MEHTA IN TALKING WITH PT.
--- NOTE | 2021-05-25 20:06 | NUR ---
PT CALLS TO REQUEST ATIVAN AND KETAMINE PRN WITH HS MEDS. ALSO REQUESTS FRESH WATER AND SPRITE.
--- NOTE | 2021-05-25 20:33 | NUR ---
HAD JUST FINISHED GIVING PT HER HS MEDS WELL PRN ATIVAN AND KETAMINE. PT SUDDENLY POINTED TO HER TOUNGE AND INDICATED THAT IT WAS SUDDENLY SWELLING UP. WILL GIVE PRN BENADRYL.
--- NOTE | 2021-05-25 20:40 | NUR ---
PT PLACED ON BIPAP, 25MG IV BENADRYL GIVEN. DR MEHTA CALLED AND ORDER GIVEN FOR 0.5MG IM EPINEPHRINE.
--- NOTE | 2021-05-25 20:51 | NUR ---
PT REPORTS CONTINUED SWELLING IN TOUNGE AND AIRWAY, DR MEHTA NOTIFIED, ORDER GIVEN FOR 0.5MG IM EPINEPHRINE AND 20MG IV KETAMINE-MEDS GIVEN, PT CONT TO SIT ON BIPAP, RR 24, SPO2 98% AND HR 110, SOME STRIDOR HEARD.
--- NOTE | 2021-05-25 21:08 | NUR ---
ANOTHER CALL TO DR MEHTA TO UPATE HER ON PTS CONT TO C/O SWELLIING IN AIRWAY, CURRENT VS AND RR. ORDER GIVEN FOR ADDITIONAL BENADRYL, ATIVAN AND SOLUMEDROL.
--- NOTE | 2021-05-25 21:49 | NUR ---
CALL TO DR MEHTA TO UPDATE RE PT STATUS, CONT C/O AIRWAY SWELLING, AND CURRENT VS. ORDER GIVEN FOR ADDITIONAL DOSE OF KETAMINE.
--- NOTE | 2021-05-26 00:24 | NUR ---
PT CONTINUES TO SLEEP WEARING BIPAP. RR 10, SPO2 92%, HR 77. RESP EVEN AND UNLABORED.
--- NOTE | 2021-05-26 00:48 | NUR ---
PT CALLS TO ASK FOR ATIVAN AND KETAMINE, MEDS GIVEN. AFTER MEDS GIVEN, PT REPORTS FEELING LIKE HER TONGUE IS STARTING TO SWELL AGAIN. BELIEVES SWELLING IS ONLY IN TOUNGUE AT THIS TIME. REQUESTS EPINEPHRINE INJECTION, BUT AGREES TO WAIT AND SEE IF SWELLING CONTINUES OR IF IT GOES AWAY, WILL CALL IF SWELLING PROGRESSES. LIES BACK TO TRY TO GO BACK TO SLEEP.
--- NOTE | 2021-05-26 02:30 | NUR ---
RECEIVED CALL FROM [facility] ACCEPTING PT FOR TRANSFER. DR MEHTA CALLED, ON WAY TO SPEAK WITH PT.
--- NOTE | 2021-05-26 02:45 | NUR ---
DR MEHTA IN TO DISCUSS PLAN TO TRANSFER PT TO [facility], PT AGREES, NO QUESTIONS AT THIS TIME.
[2021-05-26] MEDS ORDERED: CETIRIZINE HCL10 MG PO (02:54)
[2021-05-26] MEDS ORDERED: DIPHENHYDR50 MG/1 M1 IV (02:54)
[2021-05-26] MEDS ORDERED: ENOXAPARIN80 MG/0.8 SUB-Q (02:55)
[2021-05-26] MEDS ORDERED: KETALAR100 MG/1 M IV (02:55)
[2021-05-26] MEDS ORDERED: S2 RACEPINEPHR1 EACH NEB (02:55)
[2021-05-26] MEDS ORDERED: MORPHINE SU4 MG/1 M1 IV (02:56)
[2021-05-26] MEDS ORDERED: LORAZEPAM2 MG/1 M1 IV (02:57)
[2021-05-26] MEDS ORDERED: NALOXONE H0.4 MG/11 IV (02:57)
[2021-05-26] MEDS ORDERED: PROTONIX IV40 MG IV (02:58)
[2021-05-26] MEDS ORDERED: ONDANSETRON4 MG/2 M1 IV (02:58)
[2021-05-26] MEDS ORDERED: SOLU-MEDRO40 MG/1 M1 IV (02:59)
[2021-05-26] MEDS ORDERED: PROCTOSOL-HC30 GM TOP (02:59)
--- NOTE | 2021-05-26 03:19 | NUR ---
PT REQUESTS MEDICATION PRIOR TO TRANSPORT FOR ANXIETY. 1MG IV ATIVAN GIVEN.
--- NOTE | 2021-05-26 04:50 | NUR ---
PT DEPARTED WITH [facility].
--- NOTE | 2021-05-26 05:15 | NUR ---
REPORT CALLED TO SOPHIA VALDEZ.
== END 2021-05-26 04:45 | disposition short-term general hospital (02) | DRG 377 ==
LOC: ED 15:33 → MS 19:57 → CCU 19:57 → MS 20:01 → CCU 23:40
PROVIDERS: ADMIT Internal Medicine; ATTEND Internal Medicine
DX: K92.0 Hematemesis (principal); I26.99 Other pulmonary embolism without acute cor pulmonale; K92.1 Melena; Z20.822 Contact with and (suspected) exposure to COVID-19; J38.3 Other diseases of vocal cords; Z88.7 Allergy status to serum and vaccine; Z91.041 Radiographic dye allergy status; Z88.8 Allergy status to other drugs, medicaments and biological substances
CPT/HCPCS: 70450; 71045; 74018; 80048; 80053; 83735; 84703; 85018; 85025; 86850; 86900; 86901; 93306; 94640; 94660; 94799; 96374; 96375; 96376; 99285-25; C9113; C9803; J0171; J1170; J1200; J1650; J2060; J2270; J2405; J2920; J2930; J7040; J7121; U0003

== ENCOUNTER 2021-06-07 16:29 | Emergency (ER) | payer OTHER ==
[~2021-06-07] VITALS: Ht 167.6 cm; Wt 78.9 kg
[~2021-06-07 16:29] MED LIST changes: +AMITRIPTYLINE H25 MG PO; +CETIRIZINE HCL10 MG PO; +CITALOPRAM HBR20 MG PO; +DIAZEPAM5 MG PO; +DIPHENHYDR50 MG/1 M1 IV; +ELIQUIS5 MG PO; +ENOXAPARIN80 MG/0.8 SUB-Q; +KETALAR100 MG/1 M IV; +LORAZEPAM2 MG/1 M1 IV; +MORPHINE SU4 MG/1 M1 IV; +NALOXONE H0.4 MG/11 IV; +ONDANSETRON4 MG/2 M1 IV; +PANTOPRAZOLE SO40 MG PO; +PROCTOSOL-HC30 GM TOP; +PROTONIX IV40 MG IV; +S2 RACEPINEPHR1 EACH NEB; +SOLU-MEDRO40 MG/1 M1 IV; +TRETINOIN20 G2 TOP
--- OUTSIDE RECORDS SUMMARY | 2021-06-07 16:32 | XMS ---
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 E.D. VISIT COUNT (12 MO.) 1 [facility] [place] 1 [facility] 6 [facility] TOTAL 8 NOTE: Visits indicate total known visits. ED/UCC VISIT TRACKING (12 MO.) 06/07/2021 16:[address] [facility] [place] TYPE: Emergency COMPLAINT: - ALLERGIC REACTION 05/23/2021 15:[address] [facility] [place] TYPE: Emergency COMPLAINT: - ABDOMINAL PAIN, CHEST PAIN, VOMITING BLOOD, SOB 05/21/2021 06:27 [facility] TYPE: Emergency DIAGNOSES: 30434. vocal cord disfunction 83754. THROAT ISSUE . Other diseases of vocal cords . Other pulmonary embolism without acute cor pulmonale 05/20/2021 20:[address] [facility] [address] [facility] TYPE: Emergency COMPLAINT: - SOB DIAGNOSES: - Allergy status to other drugs, medicaments and biological substances - Other ferry terminal agent (current) drug therapy - Other nonmedicinal substance allergy status - Other diseases of vocal cords - Allergy status to serum and vaccine 05/19/2021 19:45 KO[facility] Alvarez TYPE: Emergency COMPLAINT: - DIFFICULTY BREATHING DIAGNOSES: - Other usp (current) drug therapy - Acute respiratory distress [...] status to serum and vaccine - Other usp (current) drug therapy 09/14/2020 11:39 [facility] [place] TYPE: Emergency COMPLAINT: - ALLERGIC REACTION INPATIENT VISIT TRACKING (12 MO.) 05/26/2021 06:22 [facility] TYPE: Critical Care DIAGNOSES: 42704. Respiratory failure, unspecified, unspecified whether with hypoxia or hypercapnia 12568. GIB, SOB vocal cord disorder 88152. Melena 05/23/2021 19:57 [facility] [place] [facility] TYPE: Critical Care COMPLAINT: - CHEST PAIN, ABDOMINAL PAIN DIAGNOSES: - Allergy status to other drugs, medicaments and biological substances - Melena - Radiographic dye allergy status - Allergy status to other drugs, medicaments and biological substances - Hematemesis - Allergy status to serum and vaccine - Melena - Other diseases of vocal cords - Radiographic dye allergy status - Other pulmonary embolism without acute cor pulmonale - Allergy status to serum and vaccine - Other diseases of vocal cords - Other pulmonary embolism without acute cor pulmonale 03/18/2021 11:29 Rosenda Rodriguez [place] TYPE: Medical Surgical COMPLAINT: - Shortness of [...] drugs, medicaments and biological substances 02/08/2021 23:01 [facility] [place] TYPE: Critical Care DIAGNOSES: - Anaphylactic shock, unspecified, initial encounter - Other diseases of vocal cords - Other urticaria - Acute respiratory failure with hypoxia - Angioneurotic edema, subsequent encounter - Acidosis 11/24/2020 15:57 [facility] TYPE: Medical Surgical COMPLAINT: - ACUTE (ANAPHYLACTIC [...] of local anesthetics, initial encounter - Other usp (current) drug therapy - Epigastric pain - [...] - Other allergy, initial encounter - Other usp (current) drug therapy - Adverse effect of other viral vaccines, initial encounter - Myalgia, unspecified site - Anaphylactic reaction due to vaccination, initial encounter - Generalized skin eruption due to drugs and medicaments taken internally - Pain in unspecified joint [email or web address]
[2021-06-07] MEDS ORDERED: ACID CONTROLLER20 MG PO (16:55)
[2021-06-07] MEDS ORDERED: SINGULAIR10 MG PO (16:55)
[2021-06-07] MEDS ORDERED: PRISTIQ ER25 MG PO (16:56)
== END 2021-06-08 01:30 | disposition home or self-care (01) ==
LOC: ED 16:29
DX: J38.3 Other diseases of vocal cords (principal); T50.A95A Adverse effect of other bacterial vaccines, initial encounter; Z88.7 Allergy status to serum and vaccine; Z91.041 Radiographic dye allergy status; Z88.5 Allergy status to narcotic agent; Z88.6 Allergy status to analgesic agent; Z91.048 Other nonmedicinal substance allergy status; Z79.899 Other long term (current) drug therapy; Z79.01 Long term (current) use of anticoagulants
CPT/HCPCS: 71045; 80053; 84703; 85025; 96374; 96375; 96376; 99284-25; J1650; J2060; J2405; J2930

== ENCOUNTER 2021-07-27 11:19 | Emergency (ER) | payer OTHER ==
[~2021-07-27] VITALS: Ht 170.2 cm; Wt 75.0 kg
[~2021-07-27 11:19] MED LIST changes: +ACID CONTROLLER20 MG PO; +PRISTIQ ER25 MG PO; +SINGULAIR10 MG PO
--- OUTSIDE RECORDS SUMMARY | 2021-07-27 11:22 | XMS ---
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 Events No recent Security Events currently on file CRITERIA MET - PDMP - Group Notification - [facility] - Has Care Guidelines - 6 ED Visits in 6 Months CARE PROVIDERS MARIANO [facility] Current PHONE: [facility]Current PHONE: [phone] Guidelines Source: [facility] Guidelines Date: 07/04/2021 Care Recommendation: IN coordination with her PCP Dr Augustine due to ongoing concerns the following recommendations are made: -Do NOT treat with anaphylaxis meds (epi, steroids) unless there are objective findings -Do TREAT her known Diagnosis of Vocal Cord Dysfunction, as appropriate, primarily with benzodiazepines -Do NOT treat pain with opiates, ketamine unless there are objective findings Dr Augustine is currently, June 2021, seeing this patient every two weeks in the office, a request of her PCP was that this be placed in [employer] system. E.D. VISIT COUNT (12 MO.) 1 [facility] 1 Rosenda Bernal. 7 KOBI Barba TOTAL 9 NOTE: Visits indicate total known visits. ED/UCC VISIT TRACKING (12 MO.) 07/27/2021 11:20 [facility] [place] TYPE: Emergency COMPLAINT: - FALL, HEAD INJURY 06/07/2021 16:29 [facility] [place] TYPE: Emergency COMPLAINT: - ALLERGIC REACTION DIAGNOSES: - Allergy status to serum and vaccine - Other alf (current) drug therapy - Other diseases of vocal cords - Allergy status to narcotic agent - Radiographic dye allergy status - Other nonmedicinal substance allergy status - Allergy status to analgesic agent - Adverse effect of other bacterial vaccines, initial encounter - assisted (current) use of anticoagulants 05/23/2021 15:34 [facility] [place] TYPE: Emergency COMPLAINT: - ABDOMINAL PAIN, CHEST PAIN, VOMITING BLOOD, SOB 05/21/2021 06:27 [facility] TYPE: Emergency DIAGNOSES: 81620. vocal cord disfunction 98583. THROAT ISSUE 88217. Other diseases of vocal cords 83717. Other pulmonary embolism without acute cor pulmonale 05/20/2021 20:48 KOBI Alvarez TYPE: Emergency COMPLAINT: - SOB DIAGNOSES: - Allergy status to other drugs, medicaments and biological substances - Other alf (current) drug therapy - Other nonmedicinal substance allergy status - Other diseases of vocal cords - Allergy status to serum and vaccine 05/19/2021 19:45 [facility] [place] TYPE: Emergency COMPLAINT: - DIFFICULTY BREATHING DIAGNOSES: - Other alf (current) drug therapy - Acute respiratory distress - Other diseases of vocal cords - Allergy status to analgesic agent - Allergy status to serum and vaccine 03/18/2021 11:29 Rosenda Rodriguez [place] TYPE: Emergency COMPLAINT: - Shortness of Breath 02/08/2021 18:44 KOBI Alvarez TYPE: Emergency COMPLAINT: - ALLERGIC REACTION DIAGNOSES: - Anaphylactic shock, unspecified, initial encounter - Allergy status to other drugs, medicaments and biological substances - Allergy status to serum and vaccine - Other alf (current) drug therapy 09/14/2020 11:39 [facility] [place] TYPE: Emergency COMPLAINT: - ALLERGIC REACTION INPATIENT VISIT TRACKING (12 MO.) 05/26/2021 06:22 [facility] TYPE: Critical Care DIAGNOSES: 71037. Respiratory failure, unspecified, unspecified whether with hypoxia or hypercapnia 87035. GIB, SOB vocal cord disorder 42750. Melena 05/23/2021 19:57 [facility] [place] TYPE: Critical Care COMPLAINT: - CHEST PAIN, [...] embolism without acute cor pulmonale 03/18/2021 11:29 [facility]by [facility] [place] TYPE: Medical Surgical COMPLAINT: - Shortness of Breath_VOCAL CORD DIAGNOSES: 0. Acute respiratory distress 1. Other [...] drugs, medicaments and biological substances 02/08/2021 23:01 [facility] TYPE: Critical Care DIAGNOSES: - Anaphylactic shock, unspecified, initial encounter - Other diseases of vocal cords - Other urticaria - Acute respiratory failure with hypoxia - Angioneurotic edema, subsequent encounter - Acidosis 11/24/2020 15:57 [facility]: [facility] COMPLAINT: - ACUTE (ANAPHYLACTIC [...] of local anesthetics, initial encounter - Other alf (current) drug therapy - Epigastric pain - [...] - Other allergy, initial encounter - Other predatory animal exterminator (current) drug therapy - Adverse effect of other viral vaccines, initial encounter - Myalgia, unspecified site - Anaphylactic reaction due to vaccination, initial encounter - Generalized skin eruption due to drugs and medicaments taken internally - Pain in unspecified joint [email or web address]
[2021-07-27] MEDS ORDERED: ELIQUIS5 MG PO (11:33)
[2021-07-27] MEDS ORDERED: PANTOPRAZOLE SO20 MG PO (11:34)
== END 2021-07-27 13:08 | disposition home or self-care (01) ==
LOC: ED 11:19
DX: S06.0X0A Concussion without loss of consciousness, initial encounter (principal); M54.2 Cervicalgia; Z88.7 Allergy status to serum and vaccine; Z88.4 Allergy status to anesthetic agent; Z91.048 Other nonmedicinal substance allergy status; Z88.5 Allergy status to narcotic agent; Z88.8 Allergy status to other drugs, medicaments and biological substances; Z79.899 Other long term (current) drug therapy; W19.XXXA Unspecified fall, initial encounter
CPT/HCPCS: 70450; 99284-25

== ENCOUNTER 2021-10-13 09:31 | Emergency (ER) | payer OTHER ==
[~2021-10-13] VITALS: Ht 170.2 cm; Wt 74.8 kg
[~2021-10-13 09:31] MED LIST changes: +PANTOPRAZOLE SO20 MG PO
--- OUTSIDE RECORDS SUMMARY | 2021-10-13 09:34 | XMS ---
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 - Has Care Guidelines - PDMP - Group Notification - 6 ED Visits in 6 Months CARE PROVIDERS VERONICA QUINTANA [facility] Current PHONE: Unknown RUDI AUGUSTINE [facility] 05/23/2021-Current PHONE: [phone] LION DUNBAR [facility] Current PHONE: [phone] Guidelines Source: [facility] Guidelines Date: 07/04/2021 Care Recommendation: IN [...] PCP was that this be placed in [employer] system. Cassie VISIT COUNT (12 MO.) 1 [facility] 1 Óscar Gabby Uriarte 7 KOBI Barba TOTAL 9 NOTE: Visits indicate total known visits. ED/UCC VISIT TRACKING (12 MO.) 10/13/2021 09:31 [facility] [place] TYPE: Emergency COMPLAINT: - ALLERGIC REACTION 07/27/2021 11:20 [facility] [place] TYPE: Emergency COMPLAINT: - FALL, HEAD INJURY DIAGNOSES: - Allergy status to serum and vaccine - Other nonmedicinal substance allergy status - Cervicalgia - Allergy status to anesthetic agent - Concussion without loss of consciousness, initial encounter - Allergy status to narcotic agent - Unspecified fall, initial encounter - Other alf (current) drug therapy - Headache, unspecified - Allergy status to other drugs, medicaments and biological substances 06/07/2021 16:29 [facility] [place] TYPE: Emergency COMPLAINT: - ALLERGIC REACTION DIAGNOSES: - Allergy status to serum and vaccine - Other termite exterminator (current) drug therapy - Other diseases of vocal cords - Allergy status to narcotic agent - Radiographic dye allergy status - Other nonmedicinal substance allergy status - Allergy status to analgesic agent - Adverse effect of other bacterial vaccines, initial encounter - nursing home (current) use of anticoagulants 05/23/2021 15:34 [facility] [place] TYPE: Emergency COMPLAINT: - ABDOMINAL PAIN, CHEST PAIN, VOMITING BLOOD, SOB 05/21/2021 06:27 [facility] TYPE: Emergency DIAGNOSES: 90172. vocal cord disfunction 46260. THROAT ISSUE 64744. Other diseases of vocal cords 93061. Other pulmonary embolism without acute cor pulmonale 05/20/2021 20:48 [facility] [place] TYPE: Emergency COMPLAINT: - SOB DIAGNOSES: - Allergy status to other drugs, medicaments and biological substances - Other alf (current) drug therapy - Other nonmedicinal substance allergy status - Other diseases of vocal cords - Allergy status to serum and vaccine 05/19/2021 19:45 [facility] [place] TYPE: Emergency COMPLAINT: - DIFFICULTY BREATHING DIAGNOSES: - Other termite exterminator (current) drug therapy - Acute respiratory distress - Other diseases of vocal cords - Allergy status to analgesic agent - Allergy status to serum and vaccine 03/18/2021 11:29 Rosenda Gbaby Dolores[facility]able [facility] TYPE: Emergency COMPLAINT: - Shortness of Breath 02/08/2021 18:44 KOBI Alvarez TYPE: Emergency COMPLAINT: - ALLERGIC REACTION DIAGNOSES: - Anaphylactic shock, unspecified, initial encounter - Allergy status to other drugs, medicaments and biological substances - Allergy status to serum and vaccine - Other termite exterminator (current) drug therapy INPATIENT VISIT TRACKING (12 MO.) 05/26/2021 06:22 [facility] TYPE: Critical Care DIAGNOSES: 08862. Respiratory failure, unspecified, unspecified whether with hypoxia or hypercapnia 40667. ANDREW IRAHETA vocal cord disorder 18145. Josefina 05/23/2021 19:57 [facility] [place] TYPE: Critical [...] embolism without acute cor pulmonale 03/18/2021 11:29 [facility] TYPE: Medical Surgical COMPLAINT: - Shortness of [...] drugs, medicaments and biological substances 02/08/2021 23:[facility] TYPE: Critical Care DIAGNOSES: - Anaphylactic shock, unspecified, initial encounter - Other diseases of vocal cords - Other urticaria - Acute respiratory failure with hypoxia - Angioneurotic edema, subsequent encounter - Acidosis 11/24/2020 15:57 [facility] COMPLAINT: - ACUTE (ANAPHYLACTIC [...] Migraine, unspecified, not intractable, without status migrainosus [email or web address]
== END 2021-10-13 11:32 | disposition home or self-care (01) ==
LOC: ED 09:31
DX: F41.0 Panic disorder [episodic paroxysmal anxiety] (principal); Z88.7 Allergy status to serum and vaccine; Z88.8 Allergy status to other drugs, medicaments and biological substances; Z88.5 Allergy status to narcotic agent; Z79.899 Other long term (current) drug therapy; Z79.01 Long term (current) use of anticoagulants
CPT/HCPCS: 96374; 96375; 99284-25; J1200; J1790; J2250

== ENCOUNTER 2021-10-30 14:03 | Emergency (ER) | payer OTHER ==
[~2021-10-30] VITALS: Ht 170.2 cm; Wt 75.0 kg
--- OUTSIDE RECORDS SUMMARY | 2021-10-30 14:06 | XMS ---
PreManage Notification: COLT BECKWITH Security Conference Director Events No recent Security Events currently on file CRITERIA MET - [facility] - Has Care Guidelines - PDMP - [facility] - 2 Visits in 30 Days - Group Notification - 6 ED Visits in 6 Months CARE PROVIDERS VERONICA QUINTANA [facility] Current PHONE: Unknown RUDI AUGUSTINE [facility] 05/23/2021-Current PHONE: [phone] LION DUNBAR [facility] Current PHONE: [phone] Guidelines Source: KOBI [facility] Guidelines Date: 07/04/2021 Care Recommendation: IN [...] PCP was that this be placed in [facility] system. EVashti VISIT COUNT (12 MO.) 1 [facility] 1 [facility] 8 KOBI Barba TOTAL 10 NOTE: Visits indicate total known visits. ED/UCC VISIT TRACKING (12 MO.) 10/30/2021 14:04 [facility] [place] TYPE: Emergency COMPLAINT: - SHOB 10/13/2021 09:31 [facility] [place] TYPE: Emergency COMPLAINT: - ALLERGIC REACTION DIAGNOSES: - Dyspnea, unspecified - Allergy status to other drugs, medicaments and biological substances - watermaster (current) use of anticoagulants - Allergy status to serum and vaccine - Allergy status to narcotic agent - Panic disorder [episodic paroxysmal anxiety] - Other manager long term care (current) drug therapy 07/27/2021 11:20 [facility] [place] TYPE: Emergency COMPLAINT: - FALL, HEAD INJURY DIAGNOSES: - Allergy status to serum and vaccine - Other nonmedicinal substance allergy status - Cervicalgia - Allergy status to anesthetic agent - Concussion without loss of consciousness, initial encounter - Allergy status to narcotic agent - Unspecified fall, initial encounter - Other manager long term care (current) drug therapy - Headache, unspecified - Allergy status to other drugs, medicaments and biological substances 06/07/2021 16:29 [facility] [place] TYPE: Emergency COMPLAINT: - ALLERGIC REACTION DIAGNOSES: - Allergy status to serum and vaccine - Other fpc (current) drug therapy - Other diseases of vocal cords - Allergy status to narcotic agent - Radiographic dye allergy status - Other nonmedicinal substance allergy status - Allergy status to analgesic agent - Adverse effect of other bacterial vaccines, initial encounter - [facility] (current) use of anticoagulants 05/23/2021 15:34 [facility] [place] TYPE: Emergency COMPLAINT: - ABDOMINAL PAIN, CHEST PAIN, VOMITING BLOOD, SOB 05/21/2021 06:27 [facility] TYPE: Emergency DIAGNOSES: 31765. vocal cord disfunction 52895. THROAT ISSUE 62370. Other diseases of vocal cords . Other pulmonary embolism without acute cor pulmonale 05/20/2021 20:48 [facility] [place] TYPE: Emergency COMPLAINT: - SOB DIAGNOSES: - Allergy status to other drugs, medicaments and biological substances - Other fpc (current) drug therapy - Other nonmedicinal substance allergy status - Other diseases of vocal cords - Allergy status to serum and vaccine 05/19/2021 19:45 KOBI Alvarez TYPE: Emergency COMPLAINT: - DIFFICULTY BREATHING DIAGNOSES: - Other manager long term care (current) drug therapy - Acute respiratory distress [...] status to serum and vaccine - Other manager long term care (current) drug therapy INPATIENT VISIT TRACKING (12 MO.) 05/26/2021 06:22 [facility] TYPE: Critical Care DIAGNOSES: 09431. Respiratory failure, unspecified, unspecified whether with hypoxia or hypercapnia 27295. GIB, SOB vocal cord disorder 57165. Melena 05/23/2021 19:57 KOBI Alvarez TYPE: Critical Care COMPLAINT: - CHEST PAIN, [...] without acute cor pulmonale 03/18/2021 11:29 Rosenda MARQUEZ TYPE: Medical Surgical COMPLAINT: - Shortness of [...] drugs, medicaments and biological substances 02/08/2021 23[facility] TYPE: Critical Care DIAGNOSES: - Anaphylactic shock, unspecified, initial encounter - Other diseases of vocal cords - Other urticaria - Acute respiratory failure with hypoxia - Angioneurotic edema, subsequent encounter - Acidosis 11/24/2020 15:57 Rosenda Rodriguez [place] TYPE: Medical Surgical COMPLAINT: - ACUTE (ANAPHYLACTIC [...] of local anesthetics, initial encounter - Other manager long term care (current) drug therapy - Epigastric pain - Migraine, unspecified, not intractable, without status migrainosus - Unspecified place in hospital as the place of occurrence of the external cause - Shock due to anesthesia, initial encounter - Migraine, unspecified, not intractable, without status migrainosus [email or web address]
[2021-10-30] MEDS ORDERED: DESVENLAFAXINE50 M3 PO (14:22)
[2021-10-30] MEDS ORDERED: EPINEPHRIN0.3 MG/0.3 IM (14:22)
[2021-10-30] MEDS ORDERED: PANTOPRAZOLE SO40 MG PO (14:23)
[2021-10-30] MEDS ORDERED: FAMOTIDINE20 MG PO (14:23)
[2021-10-30] MEDS ORDERED: MONTELUKAST SOD10 MG PO (14:23)
[2021-10-30] MEDS ORDERED: LORAZEPAM0.5 MG PO (14:24)
[2021-10-30] MEDS ORDERED: ZYRTEC10 MG PO (14:24)
--- NOTE | 2021-11-01 13:47 | EKG ---
[facility] [address] [place] [address] Signed Sinus tachycardia Nonspecific T wave abnormality Abnormal ECG When compared with ECG of 19-MAY-2021 20:00, Inverted T waves have replaced nonspecific T wave abnormality in Inferior leads Nonspecific T wave abnormality now evident in Lateral leads Confirmed by BARBARA RUTHERFORD MD ([id number]) on 11/01/2021 1:46:49 PM Electronically Signed By: BARBARA RUTHERFORD MD 11/01/21 1347 PATIENT NAME: COLT BECKWITH MONICA Electrocardiogram DATE OF : [birth year] PHYSICIAN: BARBARA RUTHERFORD MD REPORT #: [id number] REPORT IS CONFIDENTIAL AND NOT TO BE RELEASED WITHOUT AUTHORIZATION
== END 2021-10-30 19:22 | disposition home or self-care (01) ==
LOC: ED 14:03
DX: U07.1 COVID-19 (principal); T78.1XXA Other adverse food reactions, not elsewhere classified, initial encounter; Z88.7 Allergy status to serum and vaccine; Z91.012 Allergy to eggs; Z88.8 Allergy status to other drugs, medicaments and biological substances; Z88.5 Allergy status to narcotic agent; Z91.041 Radiographic dye allergy status; Z79.899 Other long term (current) drug therapy; Z79.01 Long term (current) use of anticoagulants
CPT/HCPCS: 36415; 71045; 80048; 85025; 93005; 93010; 94640; 96374; 96375; 99284-25; A9270; C9803; J1790; J2930; U0003

== ENCOUNTER 2022-01-20 18:26 | Emergency (ER) | payer OTHER ==
[~2022-01-20] VITALS: Ht 167.6 cm; Wt 72.7 kg
[~2022-01-20 18:26] MED LIST changes: +DESVENLAFAXINE50 M3 PO; +EPINEPHRIN0.3 MG/0.3 IM; +LORAZEPAM0.5 MG PO; +ZYRTEC10 MG PO
--- OUTSIDE RECORDS SUMMARY | 2022-01-20 18:28 | XMS ---
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 E.D. VISIT COUNT (12 MO.) 1 [facility] 1 Rosenda Pierre H. 9 KOBI Johnsonmike BernalMable TOTAL 11 NOTE: Visits indicate total known visits. ED/UCC VISIT TRACKING (12 MO.) 01/20/2022 18:27 [facility] [place] TYPE: Emergency COMPLAINT: - CHEST PAIN, POSS BLOOD CLOT 10/30/2021 14:04 [facility] [place] TYPE: Emergency COMPLAINT: - SHOB DIAGNOSES: - Other adverse food reactions, not elsewhere classified, initial encounter - Allergy status to serum and vaccine - Allergy status to other drugs, medicaments and biological substances - COVID-19 - Allergy status to narcotic agent - Other fpc (current) drug therapy - Radiographic dye allergy status - Allergy, unspecified, initial encounter - banking management consulting manager (current) use of anticoagulants - Allergy to eggs 10/13/2021 09:31 [facility] [place] TYPE: Emergency COMPLAINT: - ALLERGIC REACTION DIAGNOSES: - Dyspnea, unspecified - Allergy status to other drugs, medicaments and biological substances - banking management consulting manager (current) use of anticoagulants - Allergy status to serum and vaccine - Allergy status to narcotic agent - Panic disorder [episodic paroxysmal anxiety] - Other fpc (current) drug therapy 07/27/2021 11:20 [facility] [place] TYPE: Emergency COMPLAINT: - FALL, HEAD INJURY DIAGNOSES: - Allergy status to serum and vaccine - Other nonmedicinal substance allergy status - Cervicalgia - Allergy status to anesthetic agent - Concussion without loss of consciousness, initial encounter - Allergy status to narcotic agent - Unspecified fall, initial encounter - Other fpc (current) drug therapy - Headache, unspecified - Allergy status to other drugs, medicaments and biological substances 06/07/2021 16:29 [facility] [place] TYPE: Emergency COMPLAINT: - ALLERGIC REACTION DIAGNOSES: - Allergy status to serum and vaccine - Other assembler radio and electrical (current) drug therapy - Other diseases of vocal cords - Allergy status to narcotic agent - Radiographic dye allergy status - Other nonmedicinal substance allergy status - Allergy status to analgesic agent - Adverse effect of other bacterial vaccines, initial encounter - banking management consulting manager (current) use of anticoagulants 05/23/2021 15:34 [facility] [place] TYPE: Emergency COMPLAINT: - ABDOMINAL PAIN, CHEST PAIN, VOMITING BLOOD, SOB 05/21/2021 06:27 [facility] TYPE: Emergency DIAGNOSES: 97155. vocal cord disfunction 67023. THROAT ISSUE 72837. Other diseases of vocal cords 97035. Other pulmonary embolism without acute cor pulmonale [...] COMPLAINT: - DIFFICULTY BREATHING DIAGNOSES: - Other fpc (current) drug therapy - Acute respiratory distress [...] vaccine - Other fpc (current) drug therapy INPATIENT VISIT TRACKING (12 MO.) 05/26/2021 06:22 [facility] TYPE: Critical Care DIAGNOSES: 86314. Respiratory failure, unspecified, unspecified whether with hypoxia or hypercapnia 35450. GIB, SOB vocal cord disorder 96746. Melena 05/23/2021 19:57 [facility] [place] TYPE: [...] without acute cor pulmonale 03/18/2021 11:29 [facility] COMPLAINT: - Shortness [...] drugs, medicaments and biological substances [facility]08/2021 23:[facility] TYPE: Critical Care DIAGNOSES: - Anaphylactic shock, unspecified, initial encounter - Other diseases of vocal cords - Other urticaria - Acute respiratory failure with hypoxia - Angioneurotic edema, subsequent encounter - Acidosis [email or web address]
[2022-01-20] MEDS ORDERED: PRAZOSIN HCL1 MG PO (18:46)
[2022-01-20] MEDS ORDERED: PREDNISONE20 MG PO (18:46)
--- NOTE | 2022-01-22 14:08 | EKG ---
[facility] [address] [place] [address] Signed Sinus tachycardia Left axis deviation Incomplete right bundle branch block Cannot rule out Inferior infarct , age undetermined Abnormal ECG When compared with ECG of 30-OCT-2021 17:45, QRS axis shifted left Minimal criteria for Inferior infarct are now present T wave inversion no longer evident in Inferior leads Nonspecific T wave abnormality no longer evident in Lateral leads Confirmed by BARBARA RUTHERFORD MD ([id number]) on 01/22/2022 2:08:17 PM Electronically Signed By: BARBARA RUTHERFORD MD 01/22/22 1408 PATIENT NAME: COLT BECKWITH Electrocardiogram DATE OF : [birth year] PHYSICIAN: BARBARA RUTHERFORD MD REPORT #: [id number] REPORT IS CONFIDENTIAL AND NOT TO BE RELEASED WITHOUT AUTHORIZATION
== END 2022-01-20 21:24 | disposition home or self-care (01) ==
LOC: ED 18:26
DX: R07.89 Other chest pain (principal); R00.0 Tachycardia, unspecified; Z86.711 Personal history of pulmonary embolism; Z88.7 Allergy status to serum and vaccine; Z91.012 Allergy to eggs; Z88.8 Allergy status to other drugs, medicaments and biological substances; Z88.5 Allergy status to narcotic agent; Z79.899 Other long term (current) drug therapy; Z79.52 Long term (current) use of systemic steroids
CPT/HCPCS: 36415; 71045; 71260; 80053; 81001; 84484; 84703; 85025; 85379; 85610; 93005; 93010; 99285-25; J1200; Q9967

== ENCOUNTER 2023-02-03 22:34 | Emergency (ER) | payer OTHER ==
[~2023-02-03] VITALS: Ht 170.2 cm; Wt 70.1 kg
[~2023-02-03 22:34] MED LIST changes: +PRAZOSIN HCL1 MG PO; +PREDNISONE20 MG PO
--- OUTSIDE RECORDS SUMMARY | 2023-02-03 22:38 | XMS ---
PreManage Notification: COLT BECKWITH Security Tire Spotter Events No recent Security Events currently on file CRITERIA MET - Group Notification CARE PROVIDERS -, Rohan- Dentist: Public Information Coordinator [facility] Dental [facility] PHONE: [phone] VERONICA QUINTANA [facility] Current PHONE: Unknown RUDI AUGUSTINE [facility] 05/23/2021-Current PHONE: [phone] Guidelines Source: [facility] Guidelines Date: 07/04/2021 Care Recommendation: IN coordination [...] PCP was that this be placed in [employer] system. Cassie VISIT COUNT (12 MO.) 1 KOBI Barba TOTAL 1 NOTE: Visits indicate total known visits. ED/UCC VISIT TRACKING (12 MO.) 02/03/2023 22:35 [place] [place] TYPE: Emergency COMPLAINT: - ALLERGIC REACTION INPATIENT VISIT TRACKING (12 MO.) No inpatient visits to display in this time frame [id number]
[2023-02-04] MEDS ORDERED: PREDNISONE20 MG PO (01:29)
[2023-02-04 01:55] VITALS: BP 123/88
== END 2023-02-04 01:51 | disposition home or self-care (01) ==
LOC: ED 22:34
DX: T78.40XA Allergy, unspecified, initial encounter (principal); Z88.8 Allergy status to other drugs, medicaments and biological substances; Z88.7 Allergy status to serum and vaccine; Z91.012 Allergy to eggs; Z88.5 Allergy status to narcotic agent; Z79.899 Other long term (current) drug therapy; Z79.52 Long term (current) use of systemic steroids
CPT/HCPCS: 36415; 80053; 85025; 85379; 96374; 96375; 99284-25; A9270; J0171; J2930; J7121

== ENCOUNTER 2023-08-20 20:34 | Emergency (ER) | payer OTHER ==
[~2023-08-20] VITALS: Ht 170.2 cm; Wt 72.3 kg
--- OUTSIDE RECORDS SUMMARY | 2023-08-20 20:38 | XMS ---
PreManage Notification: COLT BECKWITH Security Diamond Sorter Events No recent Security Events currently on file CRITERIA MET - Group Notification CARE PROVIDERS RUDI AUGUSTINE [facility] 05/23/2021-Current PHONE: [phone] -, Rohan- Dentist: Shopper Insights Manager [facility] PHONE: [phone] VERONICA QUINTANA [facility] Current PHONE: Unknown Guidelines Source: [facility] Guidelines Date: 07/04/2021 Care Recommendation: [...] PCP was that this be placed in [employer] system. Cassie VISIT COUNT (12 MO.) 2 KOBI Barba TOTAL 2 NOTE: Visits indicate total known visits. ED/UCC VISIT TRACKING (12 MO.) 08/20/2023 20:35 [facility] [place] TYPE: Emergency COMPLAINT: - DIFFICULTY BREATHING 02/03/2023 22:[address] [facility] [place] TYPE: Emergency COMPLAINT: - ALLERGIC REACTION DIAGNOSES: - Allergy status to narcotic agent - Allergy status to other drugs, medicaments and biological substances - Allergy status to serum and vaccine - Allergy to eggs - Allergy, unspecified, initial encounter - Allergy, unspecified, initial encounter - Chest pain, unspecified - meterman (current) use of systemic steroids - Other terminal operations supervisor (current) drug therapy INPATIENT VISIT TRACKING (12 MO.) No inpatient visits to display in this time frame [id number]
[2023-08-20 21:13] LABS: HEMATOCRIT 42.4 % (35.0-50.0); HEMOGLOBIN 13.9 g/dL (12.0-18.0); MCH 28.4 (27-36); MCHC 32.7 g/dl (30-36); PLATELET COUNT 327 K/uL (140-440); RBC 4.88 M/ul (4.3-5.7); RDW 14.7 (10.5-15.0)
[2023-08-20 21:26] LABS: ALBUMIN 4.9 g/dL (3.4-5.0); ALBUMIN/GLOBULIN RATIO 1.32 (1.1-2.4); ANION GAP 18.5 (7-21); BILIRUBIN, TOTAL 0.3 ng/dL (0.2-1.0); BUN/CREATININE RATIO 9.25 (6.0-28.6); CALCIUM 9.5 mg/dL (8.5-10.1); CREATININE, SERUM 1.08 mg/dL (0.55-1.02); POTASSIUM 2.5 mmol/L (3.5-5.1); PROTEIN, TOTAL 8.6 g/dL (6.4-8.2)
[2023-08-20 21:27] LABS: BANDS, MANUAL DIFF 6; LYMPHOCYTES, MANUAL DIFF 50; MONOCYTES, MANUAL DIFF 1; NEUTROPHILS, MANUAL DIFF 43
[2023-08-20] MEDS ORDERED: HYDROXYZINE HCL25 MG PO (23:10)
[2023-08-20] MEDS ORDERED: CROMOLYN S20 MG/1 ML PO (23:10)
[2023-08-20 23:21] LABS: BASE EXCESS, BLOOD GAS 0.7 mmol/L (-2-2); HCO3, BLOOD GAS 25.4 mmol/L (22-26); O2 SATURATION, BLOOD GAS > 100.0 % (95.0-100.0); OXYGEN RECEIVED, BLOOD GAS NOT STATED; PCO2, BLOOD GAS 40.1 mmHg (35-45); PH, BLOOD GAS 7.41 (7.35-7.45); PO2, BLOOD GAS 214 mmHg (80-100); TOTAL CO2, BLOOD GAS 26.6
[2023-08-20 23:54] VITALS: BP 118/80
--- NOTE | 2023-08-21 06:05 | EKG ---
[facility] [address] [facility] [place] [address] Signed Sinus tachycardia with short ID Incomplete right bundle branch block Borderline ECG When compared with ECG of 20-JAN-2022 18:28, ID interval has decreased QRS axis shifted right Minimal criteria for Inferior infarct are no longer present Non-specific change in ST segment in Inferior leads Confirmed by ERIN PIMENTEL MD ([id number]) on 08/21/2023 6:05:16 AM Electronically Signed By: ERIN PIMENTEL 08/21/23 0605 PATIENT NAME: COLT BECKWITH MONICA Electrocardiogram DATE OF : 89 PHYSICIAN: ERIN PIMENTEL REPORT #: [id number] REPORT IS CONFIDENTIAL AND NOT TO BE RELEASED WITHOUT AUTHORIZATION
[2023-08-22 12:42] LABS: COMPLEMENT COMPONENT 4 18 mg/dL (10-40)
== END 2023-08-20 23:54 | disposition short-term general hospital (02) ==
LOC: ED 20:34
PROVIDERS: Internal Medicine
DX: T78.2XXA Anaphylactic shock, unspecified, initial encounter (principal); J96.00 Acute respiratory failure, unspecified whether with hypoxia or hypercapnia; Z11.52 Encounter for screening for COVID-19; Z88.5 Allergy status to narcotic agent; Z88.7 Allergy status to serum and vaccine; Z88.8 Allergy status to other drugs, medicaments and biological substances; Z91.012 Allergy to eggs; Z91.041 Radiographic dye allergy status; Z79.899 Other long term (current) drug therapy
CPT/HCPCS: 31500; 36415; 36600; 51702; 71045; 80053; 82803; 84703; 85025; 86161; 93005; 93010; 94640; 99285-25; A9270; C9803; J1200; J2250; J2704; J2930; J7121; U0002

== ENCOUNTER 2023-10-24 19:10 | Emergency (ER) | payer OTHER ==
[~2023-10-24] VITALS: Ht 170.2 cm; Wt 70.7 kg
[~2023-10-24 19:10] MED LIST changes: +CROMOLYN S20 MG/1 ML PO; +HYDROXYZINE HCL25 MG PO
--- OUTSIDE RECORDS SUMMARY | 2023-10-24 19:12 | XMS ---
PreManage Notification: COLT BECKWITH Security Polygraph Operator Events No recent Security Events currently on file CRITERIA MET - Group Notification CARE PROVIDERS -, Rohan- Dentist: Performance Engineer [facility] Dental [facility] PHONE: [phone] VERONICA QUINTANA [facility] Current PHONE: Unknown Guidelines Source: [facility] Guidelines Date: 07/04/2021 Care Recommendation: IN coordination with her PCP Dr Flores due to ongoing concerns the following recommendations are made: -Do NOT treat with anaphylaxis meds (epi, steroids) unless there are objective findings -Do 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 E.D. VISIT COUNT (12 MO.) 3 KOBI Barba TOTAL 3 NOTE: Visits indicate total known visits. ED/UCC VISIT TRACKING (12 MO.) 10/24/2023 19:10 [facility] [place] TYPE: Emergency COMPLAINT: - ALLERGIC REACTION 08/20/2023 20:35 [facility] [place] TYPE: Emergency COMPLAINT: - DIFFICULTY BREATHING DIAGNOSES: - Acute respiratory failure, unspecified whether with hypoxia or hypercapnia - Allergy status to narcotic agent - Allergy status to other drugs, medicaments and biological substances - Allergy status to serum and vaccine - Allergy to eggs - Anaphylactic shock, unspecified, initial encounter - Contact with and (suspected) exposure to COVID-19 - Encounter for screening for COVID-19 - Other intermediate card tender (current) drug therapy - Radiographic dye allergy status - Shortness of breath 02/03/2023 22:35 KOBI Alvarez TYPE: Emergency COMPLAINT: - ALLERGIC REACTION DIAGNOSES: - Allergy status to narcotic agent - Allergy status to other drugs, medicaments and biological substances - Allergy status to serum and vaccine - Allergy to eggs - Allergy, unspecified, initial encounter - Allergy, unspecified, initial encounter - Chest pain, unspecified - joint terminal attack controller (current) use of systemic steroids - Other half-way (current) drug therapy INPATIENT VISIT TRACKING (12 MO.) 08/21/2023 01:03 Rosenda MARQUEZ TYPE: Medical Surgical COMPLAINT: - Anaphylaxis DIAGNOSES: 0. Acute respiratory distress 1. Anaphylactic shock, unspecified, initial encounter 2. Acute respiratory failure with hypoxia 3. Acute respiratory failure with hypercapnia 4. Mast cell activation, unspecified 5. Other diseases of vocal cords 6. Anxiety disorder, unspecified 7. Depression, unspecified 8. Allergy, unspecified, initial encounter 9. Other half-way (current) drug therapy 10. Hypokalemia 11. Allergy status to serum and vaccine 12. Allergy status to other drugs, medicaments and biological substances 13. Allergy status to narcotic agent 14. Radiographic dye allergy status 15. Personal history of peptic ulcer disease 16. Personal history of traumatic brain injury [email or web address]
[2023-10-24] MEDS ORDERED: PREDNISONE10 MG PO (19:20)
[2023-10-24] MEDS ORDERED: EPIN0.3P IM (19:37)
== END 2023-10-24 19:40 | disposition home or self-care (01) ==
LOC: ED 19:10
DX: T78.40XA Allergy, unspecified, initial encounter (principal); D89.40 Mast cell activation, unspecified; Z87.892 Personal history of anaphylaxis; Z88.4 Allergy status to anesthetic agent; Z88.5 Allergy status to narcotic agent; Z88.7 Allergy status to serum and vaccine; Z88.8 Allergy status to other drugs, medicaments and biological substances; Z91.012 Allergy to eggs; Z91.040 Latex allergy status; Z91.041 Radiographic dye allergy status; Z79.52 Long term (current) use of systemic steroids; Z79.899 Other long term (current) drug therapy; X58.XXXA Exposure to other specified factors, initial encounter
CPT/HCPCS: 99283

== ENCOUNTER 2024-03-27 13:39 | Emergency (ER) | payer BC ==
[~2024-03-27] VITALS: Ht 170.2 cm; Wt 62.0 kg
[~2024-03-27 13:39] MED LIST changes: +PREDNISONE10 MG PO
--- OUTSIDE RECORDS SUMMARY | 2024-03-27 13:42 | XMS ---
PreManage Notification: COLT BECKWITH Security Latin Professor Events No recent Security Events currently on file CRITERIA MET - Group Notification CARE PROVIDERS -, Rohan- Dentist: Principal Network Engineer [facility] Dental [facility] PHONE: [phone] VERONICA QUINTANA [facility] Current PHONE: Unknown Guidelines Source: [facility] Guidelines Date: 07/04/2021 Care Recommendation: [...] PCP was that this be placed in [employer] system. E.D. VISIT COUNT (12 MO.) 4 KOBI Barba TOTAL 4 NOTE: Visits indicate total known visits. ED/UCC VISIT TRACKING (12 MO.) 03/27/2024 13:39 [facility] [place] TYPE: Emergency COMPLAINT: - SHORTNESS OF BREATH 02/17/2024 17:15 KO[facility] [place] TYPE: Emergency COMPLAINT: - EXPOSURE DIAGNOSES: - Allergy status to other drugs, medicaments and biological substances - Allergy status to serum and vaccine - Allergy to eggs - Anaphylactic shock, unspecified, initial encounter - Contact with and (suspected) exposure to other bacterial communicable diseases - Latex allergy status - Other intermediate teacher (current) drug therapy 10/24/2023 19:10 KO[facility] [place] TYPE: Emergency COMPLAINT: - POSS ALLERGIC REACTION DIAGNOSES: - Allergy status to anesthetic agent - Allergy status to narcotic agent - Allergy status to other drugs, medicaments and biological substances - Allergy status to serum and vaccine - Allergy to eggs - Allergy, unspecified, initial encounter - Exposure to other specified factors, initial encounter - Latex allergy status - intermediate accountant (current) use of systemic steroids - Mast cell activation, unspecified - Other intermediate teacher (current) drug therapy - Personal history of anaphylaxis - Radiographic dye allergy status 08/20/2023 20:35 KOBI [place] TYPE: Emergency [...] Encounter for screening for COVID-19 - Other prison (current) drug therapy - Radiographic dye allergy status - Shortness of breath INPATIENT VISIT TRACKING (12 MO.) 08/21/2023 01:03 Rosenda [facility]able [place] TYPE: Medical Surgical COMPLAINT: - Anaphylaxis DIAGNOSES: 0. Acute respiratory distress 1. Anaphylactic shock, unspecified, initial encounter 2. Acute respiratory failure with hypoxia 3. Acute respiratory failure with hypercapnia 4. Mast cell activation, unspecified 5. Other diseases of vocal cords 6. Anxiety disorder, unspecified 7. Depression, unspecified 8. Allergy, unspecified, initial encounter 9. Other prison (current) drug therapy 10. Hypokalemia 11. Allergy status to serum and vaccine 12. Allergy status to other drugs, medicaments and biological substances 13. Allergy status to narcotic agent 14. Radiographic dye allergy status 15. Personal history of peptic ulcer disease 16. Personal history of traumatic brain injury [id number]
[2024-03-27] MEDS ORDERED: EPINEPHRINE 2.25% 0.5 ML AMP ONE (13:44)
[2024-03-27] MEDS ORDERED: FAMOTIDINE 20 MG/ 2 ML VIAL IV ONE (13:45)
[2024-03-27] MEDS ORDERED: EPINEPHRINE 2.25% 0.5 ML AMP NEB ONE (13:45)
[2024-03-27] MEDS ORDERED: methylPREDNISolone SOD SUCC 125 MG/2 ML VIAL IV ONE (13:45)
[2024-03-27] MEDS ORDERED: SODIUM CHLORIDE 0.9% 1,000 ML IV ONE ×2 (13:45→15:30)
[2024-03-27] MEDS ORDERED: diphenhydrAMINE HCL 50 MG/ML VIAL IV ONE (13:45)
[2024-03-27] MEDS ORDERED: ALBUTEROL SULFATE 0.083% 3 ML VIAL INH ONE (13:45)
[2024-03-27] MEDS ORDERED: EPIPEN AUTO INJECTOR 0.3 MG/0.3 ML ML IM ONE ×2 (14:00→15:15)
[2024-03-27] MEDS ORDERED: [UNRECOGNIZED DRUG - OTHER] IM ONE (14:00)
[2024-03-27 14:16] LABS: BASOPHILS 0.3 % (0-2); EOSINOPHILS 0.2 % (0-6); HEMATOCRIT 40.9 % (35.0-50.0); HEMOGLOBIN 13.6 g/dL (12.0-18.0); LYMPHOCYTES 44.3 % (24-44); MCH 28.8 (27-36); MCHC 33.1 g/dl (30-36); MCV 87.1 fl (81-99); MONOCYTES 8.2 % (0-12); PLATELET COUNT 274 K/uL (140-440); RDW 14.5 (10.5-15.0)
[2024-03-27 14:35] LABS: ALBUMIN 4.2 g/dL (3.4-5.0); ALBUMIN/GLOBULIN RATIO 1.17 (1.1-2.4); ANION GAP 17.4 (7-21); BILIRUBIN, TOTAL 0.4 ng/dL (0.2-1.0); BUN/CREATININE RATIO 11.34 (6.0-28.6); CALCIUM 8.9 mg/dL (8.5-10.1); CREATININE, SERUM 0.97 mg/dL (0.55-1.02); PROTEIN, TOTAL 7.8 g/dL (6.4-8.2)
[2024-03-27 14:37] LABS: POTASSIUM 2.4 mmol/L (3.5-5.1)
[2024-03-27] MEDS ORDERED: EPINEPHrine HCL 4 MG in DEXTROSE 5% 250 ML IV SCH (15:30)
[2024-03-27] MEDS ORDERED: EPINEPHRINE 2.25% 0.5 ML AMP INH ONE (15:30)
[2024-03-27] MEDS ORDERED: EPIPEN 2-P0.3 MG/0.3 IM (17:37)
[2024-03-27 17:49] VITALS: BP 113/66
== END 2024-03-27 17:49 | disposition home or self-care (01) ==
LOC: ED 13:39
PROVIDERS: Emergency Medicine
DX: T78.08XA Anaphylactic reaction due to eggs, initial encounter (principal); Z91.012 Allergy to eggs; Z91.040 Latex allergy status; Z88.7 Allergy status to serum and vaccine; Z88.8 Allergy status to other drugs, medicaments and biological substances; Z88.4 Allergy status to anesthetic agent; Z91.041 Radiographic dye allergy status; Z79.899 Other long term (current) drug therapy
CPT/HCPCS: 36415; 80053; 85025; 94640; A9270; J0171; J1200; J2919; J7030; J7060

== ENCOUNTER 2025-04-09 08:37 | Emergency (ER) | payer BC, OTHER ==
[~2025-04-09] VITALS: Ht 170.2 cm; Wt 74.0 kg
--- OUTSIDE RECORDS SUMMARY | ~2025-04-09 | XMS | Continuity of Care Document ---
Demographics + + + | Address | [address] | | | [place] [address] | + + + | Preferred Language | Unknown | + + + | Marital Status | Unknown | + + + | Yarsani Affiliation | Unknown | + + + | Race | White | + + + | Ethnic Group | Not or | + + + Author + + + | Author | [facility] | + + + | Organization | [facility] | + + + | Address | [address] | | | [place] [address] | + + + | Phone | | + + + Care Team Providers + + + + | Care Color Grinder Name | Role | Phone | + + + + Unavailable | Unavailable | + + + + Allergies No information. Encounters No information. Functional Status No information. Immunizations No information. Medications No information. Problems + + + + | date | description | facility | + + + + | 2025-02-09 14:14:28 | Encounter for other | [facility] | | | specified | | | | screening | | + + + + | 2025-02-09 14:14:28 | Personal history of | [facility] | | | pulmonary embolism | | + + + + | 2025-02-10 02:13:24 | Encounter for other | [facility] | | | specified | | | | screening | | + + + + | 2025-02-10 02:13:24 | Personal history of | [facility] | | | pulmonary embolism | | + + + + Procedures No information. Results/Labs No information. Social History +--------+ + + | date | description | facility | +--------+ + + Vital Signs No information."
[~2025-04-09 08:37] MED LIST changes: +EPIPEN 2-P0.3 MG/0.3 IM
--- OUTSIDE RECORDS SUMMARY | 2025-04-09 08:44 | XMS ---
PreManage Notification: COLT BECKWITH Security Geospatial Specialist Events No recent Security Events currently on file CRITERIA MET - Group Notification CARE PROVIDERS -, Rohan- Dentist: National Sales Executive [facility] Dental [facility] PHONE: [phone] VERONICA QUINTANA [facility] Current PHONE: Unknown Guidelines Source: [facility] Guidelines Date: [...] PCP was that this be placed in [employer] system. E.D. VISIT COUNT (12 MO.) 1 KOBI Barba TOTAL 1 NOTE: Visits indicate total known visits. ED/UCC VISIT TRACKING (12 MO.) 04/09/2025 08:38 KOBI Santiago [place] TYPE: Emergency COMPLAINT: - SHORTNESS OF BREATH INPATIENT VISIT TRACKING (12 MO.) No inpatient visits to display in this time frame [email or web address]
[2025-04-09] MEDS ORDERED: ALBUTEROL/IPRATROPIUM 3 ML NEB INH PRN (08:45)
[2025-04-09] MEDS ORDERED: SODIUM CHLORIDE 0.9% 1,000 ML IV PRN (09:00)
[2025-04-09] MEDS ORDERED: EPINEPHRINE 2.25% 0.5 ML AMP NEB ONE (09:00)
[2025-04-09 09:05] LABS: BASOPHILS 0.3 % (0.1-1.2); EOSINOPHILS 0.4 % (0.7-5.8); LYMPHOCYTES 25.4 % (19.3-51.7); MCH 29.9 PG (25.6-32.2); MCHC 33.8 g/dL (32.2-35.5); MCV 88.5 fL (79.4-94.8); MONOCYTES 8.9 % (4.7-12.5); NEUTROPHILS 64.5 % (34.0-71.1); RBC 3.91 M/uL (3.93-5.22)
[2025-04-09] MEDS ORDERED: LORazepam 2 MG/ML VIAL IV ONE (09:15)
[2025-04-09] MEDS ORDERED: DEXAMETHASONE SOD PHOS 10 MG/ML VIAL IV ONE (09:15)
[2025-04-09 09:23] LABS: ALT (SGPT) 27 U/L (14-59); AST (SGOT) 15 U/L (15-37); GLOMERULAR FILTRATION RATE,EST 127 mL/min (>60); PROTEIN, TOTAL 7.2 g/dL (6.4-8.2); UREA NITROGEN 6 mg/dL (7-18)
[2025-04-09] MEDS ORDERED: PREDNISONE20 MG PO (12:15)
[2025-04-09 12:21] VITALS: BP 114/78
--- NOTE | 2025-04-09 13:22 | EKG ---
[facility] [address] [facility] [place] [address] Signed Normal sinus rhythm with sinus arrhythmia Normal ECG When compared with ECG of 19-NOV-2024 15:51, Nonspecific T wave abnormality no longer evident in Anterior leads Confirmed by Vincent Gaitan DO ([id number]) on 04/09/2025 1:22:39 PM Electronically Signed By: VINCENT GAITAN DO 04/09/25 1322 PATIENT NAME: COLT BECKWITH MONICA Electrocardiogram DATE OF : [birth year] PHYSICIAN: VINCENT GAITAN DO REPORT #: [id number] REPORT IS CONFIDENTIAL AND NOT TO BE RELEASED WITHOUT AUTHORIZATION
== END 2025-04-09 12:23 | disposition home or self-care (01) ==
LOC: ED 08:37
PROVIDERS: Emergency Medicine
DX: J38.5 Laryngeal spasm (principal); Z88.7 Allergy status to serum and vaccine; Z91.012 Allergy to eggs; Z91.041 Radiographic dye allergy status; Z91.040 Latex allergy status; Z79.899 Other long term (current) drug therapy; Z79.2 Long term (current) use of antibiotics
CPT/HCPCS: 36415; 80053; 83735; 84484; 85025; 93005; 93010; 94640; 94799; 96374; 96375; 99285-25; A9270; J1100; J1200; J7030